=== PATIENT | female | born 1950 | race Caucasian/White ===

== ENCOUNTER 2019-12-23 11:42 | Inpatient (IN) ==
[2019-12-23 12:53] LABS: Basophils # (auto) 0.03 K/uL (0-0.2); Basophils % (auto) 0.2 %; Eosinophils # (auto) 0.03 K/uL (0-0.5); Eosinophils % (auto) 0.2 %; Hematocrit (blood only) 33.3 % (37-47); Hemoglobin 11.5 g/dL (12.0-16.0); Immature Granulocytes # (auto) 0.05 K/uL (0.00-0.02); Immature Granulocytes % (auto) 0.4 %; Lymphocytes # (auto) 1.25 K/uL (1.2-3.4); Lymphocytes % (auto) 8.8 %; Mean Corpuscular Hemoglobin 30.8 pg (25-34); Mean Corpuscular Hgb Conc 34.5 g/dL (32-36); Mean Corpuscular Volume 89.3 fL (80-100); Mean Platelet Volume 8.1 fL (7.4-10.4); Monocytes # (auto) 1.31 K/uL (0.11-0.59); Monocytes % (auto) 9.2 %; Neutrophils # (auto) 11.57 K/uL (1.4-6.5); Neutrophils % (auto) 81.2 %; Platelet Count 756 K/uL (130-400); RDW Coefficient of Variation 12.8 % (11.5-14.5); RDW Standard Deviation 41.5 fL (36.4-46.3); Red Blood Count 3.73 M/uL (4.2-5.4); White Blood Count 14.24 K/uL (4.8-10.8)
[2019-12-23 13:12] LABS: Albumin Level 2.3 gm/dl (3.4-5.0); BUN Creatinine Ratio 14.2 (10-20); Calcium 8.7 mg/dl (8.5-10.1); Creatinine Clr Calc Pharmacy 41.7 ml/min; Est GFR (African American) 87.8; Est GFR (Non-African American) 75.8; Potassium 3.2 mmol/L (3.5-5.1)
[2019-12-23 13:15] LABS: Albumin Globulin Ratio 0.5 (0.9-2); Bilirubin,Total 0.3 mg/dl (0.2-1); Globulin 4.3 gm/dl (2.5-4.0); Total Protein 6.6 gm/dl (6.4-8.2)
[2019-12-23] MEDS ORDERED: PROCHLORPERAZINE 1 ML IV ONE (13:19)
[2019-12-23] MEDS ORDERED: ACETAMINOPHEN 1,000 MG/100 ML VIAL IV STA (13:19)
[2019-12-23] MEDS ORDERED: FAMOTIDINE 20MG/5ML IV PUSH IV STA (13:19)
[2019-12-23] MEDS ORDERED: SODIUM CHLORIDE 0.9% 1000ML 1,000 ML IV ONE (13:20)
[2019-12-23] MEDS ORDERED: metroNIDAZOLE 500 MG/100 ML BAG IV STA (14:11)
[2019-12-23] MEDS ORDERED: SODIUM CHLORIDE 0.9% 500 ML IV SCH (14:15)
[2019-12-23 14:48] LABS: Magnesium 1.7 mg/dl (1.8-2.4)
--- NOTE | 2019-12-23 15:09 | History & Physical Report ---
Date of Service December 23, 2019 Assessment & Plan (1) Exacerbation of ulcerative colitis: Pt is 69 y/o F with PMH ulcerative colitis, hypertension, dyslipidemia, GERD scented to ER with complaint of rectal pain, mucus and blood-tinged BMs x 8 weeks. 8 pound weight loss in past 2 weeks. No improvement with outpatient trial of steroid enemas, mesalamine enemas or oral steroids. 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 In ER afebrile, vitals stable. WBC: 14, CRP: 17, ESR: 50 -Blood cultures pending -In ER given 1 mL NSS bolus, Tylenol 1 g IV, Pepcid 20 mg IV, Flagyl 500 mg IV, Solu-Medrol 20 mg IV -ER spoke to GI-Dr. Duarte who had recommended admission, C. difficile, Flagyl and steroids -Pending C. difficile, stool studies -IV fluids -Clear liquid diet as tolerated for now -Solu-Medrol 20 mg every 8 hours -Flagyl IV -Continue home mesalamine -GI consult -CBC, BMP in a.m. (2) Hypokalemia: K: 3.2 -NSS plus KCl -Monitor BMP (3) Hypomagnesemia: Magnesium: 1.7 -Replace and monitor (4) HTN (hypertension): -Continue amlodipine (5) Dyslipidemia: -Hold home medicines at this time with current abdominal upset (6) GERD (gastroesophageal reflux disease): -Continue PPI DVT Prophylaxis -SCDs Full Code as per discussion with pt Follows with Dr Serna for routine care Pt was seen and care coordinated with Dr Osorio. See addendum History of Present Illness Chief Complaint: Rectal pain Primary Care Provider: Martine Serna MD Pt is 69 y/o F with PMH ulcerative colitis, hypertension, dyslipidemia, GERD scented to ER with complaint of rectal pain, mucus and blood-tinged BMs x 8 weeks. Reports 8 pound weight loss in the past 2 weeks. Follows with GI-Dr. Duarte outpatient. Pt states 2 weeks ago had temp of 100-102F and had outpatient CT abd/pelvis to r/o abscess and did not have abscess. Has not had recurrent fevers. Has tried hydrocortisone enemas, mesalamine enemas without relief. Patient reports last use enemas approximately 12 days ago. She does note last time she tried to use an enema she had output through her vagina. Patient reports decreased oral intake. Reports rectal and vaginal pressure and pain. Denies urinary symptoms. Denies diffuse watery diarrhea. Last week patient has been having increased generalized weakness. Denies diaphoresis, N/V, THAPA, dizziness, syncope, vision changes, neck pain, CP, SOB, orthopnea, palpitations, cough, sore throat, choking, otalgia, rhinorrhea, paresthesias, extremity edema, rashes. 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 History colonoscopy 05/2019: Normal examined portion of ileum, normal colon, normal distal rectum and anal verge. Allergies Allergy/AdvReac Type Severity Reaction Status Date / Time niacin Allergy Unknown RASH AND Verified 12/23/19 13:27 ITCHY prednisone Allergy Unknown SUICIDAL Verified 12/23/19 13:27 THOUGHTS Sulfa (Sulfonamide Allergy Unknown "FEEL LIKE Verified 12/23/19 13:27 Antibiotics) I SWALLOWED PEPPER" & Rash lovastatin AdvReac Unknown MUSCLE Verified 12/23/19 13:27 SORENESS rosuvastatin AdvReac Unknown MUSCLE Verified 12/23/19 13:27 SORENESS simvastatin AdvReac Unknown MUSCLE Verified 12/23/19 13:27 SORENESS [id number] Reductase AdvReac Unknown MUSCLE Verified 12/23/19 13:27 Inhibitor SORENESS Home Medications Home Medications Medication Instructions Recorded Confirmed Type [place] 1 dose PO QAM 06/08/19 12/23/19 History amlodipine 5 mg PO QAM 06/08/19 12/23/19 History azelaic acid [Finacea] 1 applic TOPICAL UD PRN 06/08/19 12/23/19 History calcium lactate 600 mg PO QAM 06/08/19 12/23/19 History cholecalciferol (vitamin D3) 2,000 unit PO DAILY 06/08/19 12/23/19 History [Vitamin D3] diphenhydramine HCl [Benadryl] 25 mg PO HS 06/08/19 12/23/19 History folic acid 1 mg PO QAM 06/08/19 12/23/19 History mesalamine [Lialda] 3.6 g PO QAM 06/08/19 12/23/19 History omeprazole 20 mg PO QAM 06/08/19 12/23/19 History tramadol 50 mg PO Q8H PRN 06/08/19 12/23/19 History valacyclovir [Valtrex] 500 mg PO QAM 06/08/19 12/23/19 History acetaminophen [Tylenol Extra 1,000 mg PO Q6H PRN 12/23/19 12/23/19 History Strength] budesonide [Entocort EC] 3 mg PO DIRECTED 12/23/19 12/23/19 History ezetimibe [Zetia] 10 mg PO QAM 12/23/19 12/23/19 History Past Med/Surg History Medical History Dyslipidemia GERD (gastroesophageal reflux disease) History of basal cell carcinoma REMOVED History of kidney stones X1 EPISODE - MANY YRS AGO HTN (hypertension) Osteoarthritis Rosacea Shoulder problem R Ulcerative colitis Surgical History History of colonoscopy History of repair of right rotator cuff History of right knee surgery History of tubal ligation Family History Other COPD (chronic obstructive pulmonary disease) Hypertension Social History Smoking Status: Never smoker Second Hand Exposure: No; Do You Dip or Chew Tobacco: No; Tobacco Cessation Education Requested by Patient: No Hx Alcohol Use: No Hx Substance Use: No Preferred Language: Hungarian Communication Ability: Effective 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 Beliefs That Will Affect Care: None Current Living Situation: Spouse Other Information That Helps Us Care for You: No Feels Safe at Home: Yes Safety Concerns: Feels Safe At This Time Review of Systems Review of Systems: All systems reviewed & are unremarkable except as noted in HPI & below Physical Exam Physical Exam: General: no distress, thin female Head: normocephalic, atraumatic Eyes: conjunctiva non-injected, anicteric ENT: normal inspection external ears, nose, mucous membranes mildly dry Neck: supple, trachea midline Lungs: clear, no respiratory distress, no wheezing/rhonchi/rales CV: RRR, no murmur, no pretibial edema Abd: normal BS, soft, no significant tenderness to palpation Ext: no cyanosis, no calf tenderness Neuro: A&O x 3, no focal deficits noted, normal affect Skin: warm, dry Results & Data Results & Data ([facility]) Vital Signs (Past 12 Hours) Vital Signs Temp Pulse Resp BP Pulse Ox 12/23/19 14:10 80 13 12/23/19 14:00 84 16 12/23/19 13:50 84 19 12/23/19 13:40 86 18 12/23/19 13:39 86 22 12/23/19 13:33 151/87 H 12/23/19 13:30 86 18 12/23/19 13:20 92 H 21 12/23/19 13:10 92 H 21 12/23/19 13:00 96 H 21 12/23/19 12:50 90 19 12/23/19 12:40 89 17 12/23/19 12:30 95 H 19 12/23/19 12:29 95 H 20 12/23/19 11:45 36.6 C 99 H 20 153/93 H 99 Laboratory Results Short CBC 12/23/19 Range/Units 12:31 WBC 14.24 H (4.8-10.8) K/uL Hgb 11.5 L (12.0-16.0) g/dL Hct 33.3 L (37-47) % Plt Count 756 H (130-400) K/uL BMP 12/23/19 12:31 Sodium 136 Potassium 3.2 L Chloride 103 Carbon Dioxide 23 BUN 11 Creatinine 0.80 Glucose 165 H Calcium 8.7 Liver Function 12/23/19 Range/Units 12:31 Total Bilirubin 0.3 (0.2-1) mg/dl AST 8 L (15-37) U/L ALT 16 (12-78) U/L Alkaline Phosphatase 107 (45-117) U/L Albumin 2.3 L (3.4-5.0) gm/dl Code Status & VTE Plan VTE Prophylaxis Plan VTE Prophylaxis will be ordered: Yes Supervising Physician Co-Signing Physician Notes Patient was seen and examined by me, care coordinated with Mónica Cagle PA-C. Please see her note above for further details. Mrs. De La Vega is a 69-year-old female, with history of ulcerative colitis, dyslipidemia, who presents to the hospital with UC flare. Patient follows with Dr. Duarte, from [facility], lately she has been having more loose stools, and bloody mucus stools. She also lost weight, she believes about 8 pounds in last 2 weeks. Unfortunately she also noticed that when she does her enemas, they seem to be coming out of her vagina, and therefore she contacted her deputy felony clerk. MRI was ordered and patient underwent MRI yesterday. It showed severe UC involving descending colon, sigmoid and rectum. Suspected perianal fistula at 12 oclock extending to perineum/vaginal introitus originating at the anorectal junction. No abscess. Patient has been on budesonide from December 11, however she feels it makes no difference for her. Currently in ED, her WBC is 14,000, hemoglobin 11.5, platelets 756. CRP is 17, ESR 50. She is hypokalemic with potassium of 3.2. She is currently lying in bed, in no acute distress. Her is at the bedside. She is alert and oriented x3, answering questions appropriately. Lungs are clear on auscultation bilaterally, without any wheezing rhonchi or crackles. Heart sounds are regular. Abdomen is soft, overall nontender to palpation, nondistended. However patient does complain of constant pressure in her groin/vaginal area. She moves all 4 extremities spontaneously without difficulty. There is no lower extremity edema. Skin is warm, dry, well perfused without any rashes or lesions. Will check mag and phosphorus level, and replace electrolytes as needed. We will continue IV hydration. Will start IV Solu-Medrol 20 every 8 hours. Will test for C. difficile and stool culture. Will start Flagyl as discussed with GI. GI will follow. Given her weight loss, and low BMI of 17, will need to discuss further her nutritional status. Given her fistula patient may need possibly TPN, will discuss further with GI. Charlene Osorio MD
[2019-12-23 15:19] LABS: Phosphorus 3.1 mg/dl (2.5-4.9)
[2019-12-23] MEDS ORDERED: TRAMADOL HCL 50 MG TABLET PO PRN (16:00)
[2019-12-23] MEDS ORDERED: MAGNESIUM SULFATE / D5W 1 GM/100 ML BAG IV ONE (16:00)
[2019-12-23] MEDS: NSS + 20MEQ KCL 20 MEQ/1,000 ML BAG IV SCH (16:39)
[2019-12-23] MEDS ORDERED: POTASSIUM CHLORIDE 20 MEQ TABCR PO ONE (17:00)
--- NOTE | 2019-12-23 17:50 | Emergency Department Note ---
Impression & Plan Exacerbation of ulcerative colitis, Dehydration, Hypokalemia, Hypomagnesemia ED Provider Note NAME: ANNABELLE LUNA AGE: 69 SEX: F ARRIVES VIA: Walk-In INFORMANT: Patient, ED PROVIDER(S): Db Lucio MD CHIEF COMPLAINT: Ulcerative colitis flare, dehydration. PLAN: Disposition: Admit MEDICAL DECISION MAKING: The patient is a pleasant 69 y/o woman with a pmhx of ulcerative colitis who presents to the emergency department with generalized weakness, dizziness., and dehydration in the setting of ongoing UC flare over the past month with de velopment of frequent vaginal discharge over the past week. Patient reports having MRI of her abdomen this past week, demonstrated evidence of askn-pupt-zrcxcwn fistula. No evidence of abscess. She reports intermittent nausea without vomiting. Reports intermittent lower abdominal pain/spasm and rectal pain with bowel movements, which she reports have been bloody. Denies CP, SOB, cough, congestion, fevers. On arrival the patient is fatigued appearing but in NAD, AFVSS. She appears clinically dry. Abdomen is nontender. WBC 14.2, nonspecific. H/H 11.5/33 without prior for comparison. Platelets 756, on specific. ESR 50, CRP 17. Chemistry without acidosis. Potassium 3.2, Mag 1.7. LFTs unremarkable. Lipase is not elevated. Case was discussed with patient's java developer consultant, Dr. Duarte, who was also [facility] GI on-call. Agrees with admission given patient's prolonged and worsening symptoms. Will likely require colorectal surgery referral at some point. Recommends Cdiff testing, IV steroid s, IV flagyl. Given patient recently had MRI we agree CT is unlikely to add at this time and so was deferred. Plan for admission reviewed with the patient and her and they were agreeable. Patient reports history of feeling depression and SI when on prednisone in past but is agreeable to proceed with IV steroids per GI recommendation. Case was discussed with Luisa Cagle, [facility] PAC, with Dr. Briscoe, who will evaluate the patient for admission. Triage Nursing notes reviewed and agree them. Additional history obtained from [facility] record. Prior medical records reviewed Vital Signs: reviewed and remarkable for no significant abnormalities Differential diagnosis: Appendicitis, ovarian cyst, ovarian torsion, ectopic , TOA, PID, infections, diverticulitis, UTI, obstruction, mesenteric ischemia, aortic pathology, inflammatory bowel disease, renal colic, PUD, pancreatitis, biliary pathology, hernia, volvulus, constipation, as well as other pathologies. ER treatment provided: See below. Diagnostics interpreted by me: ECG: NSR, 89 bpm, no ectopy, no overt ST elevation or depression, QTC 440, QRS 82 Cardiac Monitoring: An order for continuous cardiac monitoring was placed and demonstrated NSR, 89 bpm, no ectopy. Laboratory studies: See below Consultation(s): Dr. Duarte, [facility] GI on-call. Luisa Cagle, [facility] PAC, with Dr. Briscoe, [facility] hospitalist, who will evaluate the patient for admission. HPI: The patient is a pleasant 69 y/o woman with a pmhx of ulcerative colitis who presents to the emergency department with generalized weakness, dizziness., and dehydration in the setting of ongoing UC flare over the past month with development of frequent vaginal discharge over the past week. Patient reports having MRI of her abdomen this past week, demonstrated evidence of odlo-mdie-dx ginal fistula. No evidence of abscess. She reports intermittent nausea without vomiting. Reports intermittent lower abdominal pain/spasm and rectal pain with bowel movements, which she reports have been bloody. Denies CP, SOB, cough, congestion, fevers. ROS: See above HPI for pertinent positives & negatives. A total of 10 systems reviewed and were otherwise negative. PAST MEDICAL HISTORY:See Below PAST SURGICAL HISTORY:See Below FAMILY HISTORY:See Below SOCIAL HISTORY:See Below HOME MEDICATIONS:See Below ALLERGIES:See Below VITALS:See Below PHYSICAL EXAMINATION: GENERAL: Awake, alert, fatigued/cachectic-appearing, in no distress HENT: Normocephalic, atraumatic. Oropharynx with dry mucous membranes and otherwise unremarkable. EYES: Normal conjunctiva. Sclera non-icteric. NECK: Supple. No nuchal rigidity. FROM. No JVD. RESPIRATORY: Clear to auscultation. CARDIAC: Regular rate, normal rhythm. Extremities warm and well perfused. Pulses equal. ABDOMEN: Soft, non-distended. No tenderness to palpation. No rebound or guarding. No masses. RECTAL: Deferred. MUSCULOSKELETAL: Chest examination reveals no tenderness. The back is symmetrical on inspection without obvious abnormality. There is no CVA tenderness to palpation. No joint edema. LOWER EXTREMITIES: Calves are equal size bilaterally and non-tender. No edema. No discoloration. NEURO: Normal sensorium. No sensory or motor deficits noted. SKIN: No rash or jaundice noted. Db Lucio MD Past Med/Surg History Medical History Dyslipidemia GERD (gastroesophageal reflux disease) History of basal cell carcinoma REMOVED History of kidney stones X1 EPISODE - MANY YRS AGO HTN (hypertension) Osteoarthritis Rosacea Shoulder problem R Ulcerative colitis Surgical History History of colonoscopy History of repair of right rotator cuff History of right knee surgery History of tubal ligation Family History Other COPD (chronic obstructive pulmonary disease) Hypertension Social History Smoking Status: Never smoker Second Hand Exposure: No; Do You Dip or Chew Tobacco: No; Tobacco Cessation Education Requested by Patient: No Hx Alcohol Use: No Hx Substance Use: No Preferred Language: Welsh Communication Ability: Effective Steel Tester Required: No Beliefs That Will Affect Care: None Current Living Situation: Spouse Other Information That Helps Us Care for You: No Feels Safe at Home: Yes Safety Concerns: Feels Safe At This Time Allergies Allergies Allergy/AdvReac Type Severity Reaction Status Date / Time niacin Allergy Unknown RASH AND Verified 12/23/19 13:27 ITCHY prednisone Allergy Unknown SUICIDAL Verified 12/23/19 13:27 THOUGHTS Sulfa (Sulfonamide Allergy Unknown "FEEL LIKE Verified 12/23/19 13:27 Antibiotics) I SWALLOWED PEPPER" & Rash lovastatin AdvReac Unknown MUSCLE Verified 12/23/19 13:27 SORENESS rosuvastatin AdvReac Unknown MUSCLE Verified 12/23/19 13:27 SORENESS simvastatin AdvReac Unknown MUSCLE Verified 12/23/19 13:27 SORENESS Aocqisd-Qlw-Cgb Reductase AdvReac Unknown MUSCLE Verified 12/23/19 13:27 Inhibitor SORENESS Home Meds Home Medications Medication Instructions Recorded Confirmed Chaste Tree 1 dose PO QAM 06/08/19 12/23/19 amlodipine 5 mg PO QAM 06/08/19 12/23/19 azelaic acid [Finacea] 1 applic TOPICAL UD PRN 06/08/19 12/23/19 calcium lactate 600 mg PO QAM 06/08/19 12/23/19 cholecalciferol (vitamin D3) 2,000 unit PO DAILY 06/08/19 12/23/19 [Vitamin D3] diphenhydramine HCl [Benadryl] 25 mg PO HS 06/08/19 12/23/19 folic acid 1 mg PO QAM 06/08/19 12/23/19 mesalamine [Lialda] 3.6 g PO QAM 06/08/19 12/23/19 omeprazole 20 mg PO QAM 06/08/19 12/23/19 tramadol 50 mg PO Q8H PRN 06/08/19 12/23/19 valacyclovir [Valtrex] 500 mg PO QAM 06/08/19 12/23/19 acetaminophen [Tylenol Extra 1,000 mg PO Q6H PRN 12/23/19 12/23/19 Strength] budesonide [Entocort EC] 3 mg PO DIRECTED 12/23/19 12/23/19 ezetimibe [Zetia] 10 mg PO QAM 12/23/19 12/23/19 Results & Data (ED) Vital Signs Vital Signs - 24 hr 12/23/19 11:45 12/23/19 12:29 12/23/19 12:30 Temperature 36.6 C Temperature Source Oral Pulse Rate 99 H 95 H 95 H Respiratory Rate 20 20 19 Respiratory Effort / Characteristics Non-Labored Respiratory Depth Normal Blood Pressure 153/93 H Blood Pressure Mean 113 Pulse Oximetry 99 Oxygen Delivery Method Room Air Sepsis Recent Fever Within 48 Hours No Sepsis New/Unexplained Change in Mental Status N/A Sepsis Action Taken by Nursing No Action Required 12/23/19 12:40 12/23/19 12:50 12/23/19 13:00 Temperature Temperature Source Pulse Rate 89 90 96 H Respiratory Rate 17 19 21 Respiratory Effort / Characteristics Respiratory Depth Blood Pressure Blood Pressure Mean Pulse Oximetry Oxygen Delivery Method Sepsis Recent Fever Within 48 Hours Sepsis New/Unexplained Change in Mental Status Sepsis Action Taken by Nursing 12/23/19 13:10 12/23/19 13:20 12/23/19 13:30 Temperature Temperature Source Pulse Rate 92 H 92 H 86 Respiratory Rate 21 21 18 Respiratory Effort / Characteristics Respiratory Depth Blood Pressure Blood Pressure Mean Pulse Oximetry Oxygen Delivery Method Sepsis Recent Fever Within 48 Hours Sepsis New/Unexplained Change in Mental Status Sepsis Action Taken by Nursing 12/23/19 13:33 12/23/19 13:39 12/23/19 13:40 Temperature Temperature Source Pulse Rate 86 86 Respiratory Rate 22 18 Respiratory Effort / Characteristics Respiratory Depth Blood Pressure 151/87 H Blood Pressure Mean 92 Pulse Oximetry Oxygen Delivery Method Sepsis Recent Fever Within 48 Hours Sepsis New/Unexplained Change in Mental Status Sepsis Action Taken by Nursing 12/23/19 13:50 12/23/19 14:00 12/23/19 14:10 Temperature Temperature Source Pulse Rate 84 84 80 Respiratory Rate 19 16 13 Respiratory Effort / Characteristics Respiratory Depth Blood Pressure Blood Pressure Mean Pulse Oximetry Oxygen Delivery Method Sepsis Recent Fever Within 48 Hours Sepsis New/Unexplained Change in Mental Status Sepsis Action Taken by Nursing Laboratory Data Attestation: I reviewed the patient's lab results. Result diagrams: 12/23/19 12:31 12/23/19 12:31 Lab Results 12/23/19 12/23/19 12/23/19 Range/Units 12:31 12:31 12:31 WBC 14.24 H (4.8-10.8) K/uL RBC 3.73 L (4.2-5.4) M/uL Hgb 11.5 L (12.0-16.0) g/dL Hct 33.3 L (37-47) % MCV 89.3 (80-100) fL MCH 30.8 (25-34) pg MCHC 34.5 (32-36) g/dL RDW Std Deviation 41.5 (36.4-46.3) fL RDW Coeff of Gadiel 12.8 (11.5-14.5) % Plt Count 756 H (130-400) K/uL MPV 8.1 (7.4-10.4) fL Immature Gran % (Auto) 0.4 % Neut % (Auto) 81.2 % Lymph % (Auto) 8.8 % [place] % (Auto) 9.2 % Eos % (Auto) 0.2 % Baso % (Auto) 0.2 % Neut # (Auto) 11.57 H (1.4-6.5) K/uL Lymph # (Auto) 1.25 (1.2-3.4) K/uL [place] # (Auto) 1.31 H (0.11-0.59) K/uL Eos # (Auto) 0.03 (0-0.5) K/uL Baso # (Auto) 0.03 (0-0.2) K/uL Immature Gran # (Auto) 0.05 H (0.00-0.02) K/uL ESR 50 H (0-21) mm/hr Sodium 136 (136-145) mmol/L Potassium 3.2 L (3.5-5.1) mmol/L Chloride 103 (98-107) mmol/L Carbon Dioxide 23 (21-32) mmol/L Anion Gap 10.0 (3-11) BUN 11 (7-18) mg/dl Creatinine 0.80 (0.6-1.2) mg/dl Est Cr Clr Drug Dosing 41.7 ml/min Est GFR ( Amer) 87.8 Est GFR (Non-Af Amer) 75.8 BUN/Creatinine Ratio 14.2 (10-20) Glucose 165 H (70-99) mg/dl Calcium 8.7 (8.5-10.1) mg/dl Phosphorus (2.5-4.9) mg/dl Magnesium (1.8-2.4) mg/dl Total Bilirubin 0.3 (0.2-1) mg/dl AST 8 L (15-37) U/L ALT 16 (12-78) U/L Alkaline Phosphatase 107 (45-117) U/L C-Reactive Protein (0-0.29) mg/dl Total Protein 6.6 (6.4-8.2) gm/dl Albumin 2.3 L (3.4-5.0) gm/dl Globulin 4.3 H (2.5-4.0) gm/dl Albumin/Globulin Ratio 0.5 L (0.9-2) Lipase 64 L (73-393) U/L 12/23/19 12/23/19 Range/Units 12:31 12:31 WBC (4.8-10.8) K/uL RBC (4.2-5.4) M/uL Hgb (12.0-16.0) g/dL Hct (37-47) % MCV (80-100) fL MCH (25-34) pg MCHC (32-36) g/dL RDW Std Deviation (36.4-46.3) fL RDW Coeff of Gadiel (11.5-14.5) % Plt Count (130-400) K/uL MPV (7.4-10.4) fL Immature Gran % (Auto) % Neut % (Auto) % Lymph % (Auto) % [place] % (Auto) % Eos % (Auto) % Baso % (Auto) % Neut # (Auto) (1.4-6.5) K/uL Lymph # (Auto) (1.2-3.4) K/uL [place] # (Auto) (0.11-0.59) K/uL Eos # (Auto) (0-0.5) K/uL Baso # (Auto) (0-0.2) K/uL Immature Gran # (Auto) (0.00-0.02) K/uL ESR (0-21) mm/hr Sodium (136-145) mmol/L Potassium (3.5-5.1) mmol/L Chloride (98-107) mmol/L Carbon Dioxide (21-32) mmol/L Anion Gap (3-11) BUN (7-18) mg/dl Creatinine (0.6-1.2) mg/dl Est Cr Clr Drug Dosing ml/min Est GFR ( Amer) Est GFR (Non-Af Amer) BUN/Creatinine Ratio (10-20) Glucose (70-99) mg/dl Calcium (8.5-10.1) mg/dl Phosphorus 3.1 (2.5-4.9) mg/dl Magnesium 1.7 L (1.8-2.4) mg/dl Total Bilirubin (0.2-1) mg/dl AST (15-37) U/L ALT (12-78) U/L Alkaline Phosphatase (45-117) U/L C-Reactive Protein 17.20 H (0-0.29) mg/dl Total Protein (6.4-8.2) gm/dl Albumin (3.4-5.0) gm/dl Globulin (2.5-4.0) gm/dl Albumin/Globulin Ratio (0.9-2) Lipase (73-393) U/L Administered Medications Metronidazole (Flagyl) 500 mg in 100 mls @ 100 mls/hr IV Q8H EMY Stop: 01/02/20 13:59 Last Infusion: 12/23/19 22:32 Dose: 0 mls/hr Documented by: [id number] Admin: 12/23/19 21:29 Dose: 100 mls/hr Documented by: [id number] Potassium Chloride/Sodium Chloride (Normal Saline W/20 Meq Kcl) 20 meq in 1,000 mls @ 100 mls/hr IV .Q10H EMY Stop: 12/24/19 21:59 Last Admin: 12/23/19 16:39 Dose: 100 mls/hr Documented by: [id number] Methylprednisolone 20 mg/ (Syringe) 0.32 mls @ 1.5 mls/min IV Q8 EMY Stop: 01/22/20 21:59 Last Admin: 12/23/19 21:27 Dose: 1.5 mls/min Documented by: [id number] Discontinued Medications Famotidine (Pepcid 20mg Iv Push) 20 mg IV ONE STA Stop: 12/23/19 13:20 Last Admin: 12/23/19 13:30 Dose: 20 mg Documented by: [id number] Acetaminophen (Ofirmev) 1,000 mg in 100 mls @ 400 mls/hr IV NOW STA Stop: 12/23/19 13:33 Last Infusion: 12/23/19 14:14 Dose: 0 mls/hr Documented by: [id number] Admin: 12/23/19 13:30 Dose: 400 mls/hr Documented by: [id number] Prochlorperazine (Compazine) 1 mls @ 1 mls/min IV ONE ONE Stop: 12/23/19 13:20 Last Admin: 12/23/19 13:30 Dose: 1 mls/min Documented by: [id number] Sodium Chloride (Nss 1000ml) 1,000 mls @ 999 mls/hr IV .Q1H1M ONE Stop: 12/23/19 14:20 Last Infusion: 12/23/19 14:57 Dose: 0 mls/hr Documented by: [id number] Admin: 12/23/19 13:30 Dose: 999 mls/hr Documented by: [id number] Metronidazole (Flagyl) 500 mg in 100 mls @ 100 mls/hr IV NOW STA Stop: 12/23/19 15:10 Last Infusion: 12/23/19 16:32 Dose: 0 mls/hr Documented by: [id number] Admin: 12/23/19 14:57 Dose: 100 mls/hr Documented by: [id number] Sodium Chloride (Nss) 500 mls @ 125 mls/hr IV .Q4H EMY Stop: 01/22/20 14:14 Last Infusion: 12/23/19 16:33 Dose: 0 mls/hr Documented by: [id number] Infusion: 12/23/19 16:33 Dose: 0 mls/hr Documented by: [id number] Admin: 12/23/19 15:00 Dose: 125 mls/hr Documented by: [id number] Magnesium Sulfate/Dextrose (Magnesium Sulfate / D5w) 1 gm in 100 mls @ 50 mls/hr IV ONE ONE Stop: 12/23/19 17:59 Last Infusion: 12/23/19 18:52 Dose: 0 mls/hr Documented by: [id number] Admin: 12/23/19 16:42 Dose: 50 mls/hr Documented by: [id number] Methylprednisolone (Solumedrol) 20 mg IV NOW STA Stop: 12/23/19 14:12 Last Admin: 12/23/19 14:25 Dose: 20 mg Documented by: [id number] Potassium Chloride (Klor-Con M20) 40 meq PO 1700 ONE Stop: 12/23/19 17:01 Last Admin: 12/23/19 17:03 Dose: 40 meq Documented by: [id number] Blood Pressure Blood Pressure Findings: Normal blood pressure Blood Pressure Disposition: did not require urgent referral Discharge Plan Visit Data *Final* Discharge Date/Time: 12/23/19 15:41 Chief Complaint: GI Assessment Stated Complaint: DEHYDRATED - REF BY NURSE ED Provider: Db Lucio Discharge Problem: Exacerbation of ulcerative colitis, Dehydration, Hypokalemia, Hypomagnesemia Patient Disposition: Admitted As Inpatient Discharge Instructions Interventions: ED Discharge Assessment Last Done: 12/23/19 15:41
[2019-12-23] MEDS: methylPREDNISolone 20 MG in SYRINGE 0 ML IV SCH (21:27)
[2019-12-23] MEDS: metroNIDAZOLE 500 MG/100 ML BAG IV SCH (21:29)
[2019-12-24] MEDS: NSS + 20MEQ KCL 20 MEQ/1,000 ML BAG IV SCH ×2 (05:35→16:39)
[2019-12-24] MEDS: metroNIDAZOLE 500 MG/100 ML BAG IV SCH ×3 (05:35→21:23)
[2019-12-24] MEDS: methylPREDNISolone 20 MG in SYRINGE 0 ML IV SCH ×2 (05:36→14:08)
[2019-12-24 06:08] LABS: Basophils # (auto) 0.01 K/uL (0-0.2); Basophils % (auto) 0.1 %; Hematocrit (blood only) 30.9 % (37-47); Hemoglobin 10.5 g/dL (12.0-16.0); Immature Granulocytes # (auto) 0.04 K/uL (0.00-0.02); Immature Granulocytes % (auto) 0.3 %; Lymphocytes # (auto) 0.66 K/uL (1.2-3.4); Lymphocytes % (auto) 5.3 %; Mean Corpuscular Hemoglobin 30.2 pg (25-34); Mean Corpuscular Volume 88.8 fL (80-100); Monocytes % (auto) 5.6 %; Neutrophils # (auto) 11.01 K/uL (1.4-6.5); Neutrophils % (auto) 88.7 %; Platelet Count 693 K/uL (130-400); RDW Standard Deviation 42.3 fL (36.4-46.3); Red Blood Count 3.48 M/uL (4.2-5.4); White Blood Count 12.42 K/uL (4.8-10.8)
[2019-12-24 06:44] LABS: BUN Creatinine Ratio 13.6 (10-20); Calcium 8.1 mg/dl (8.5-10.1); Creatinine Clr Calc Pharmacy 69.8 ml/min; Est GFR (African American) 116.8; Est GFR (Non-African American) 100.8; Magnesium 1.9 mg/dl (1.8-2.4)
[2019-12-24] MEDS: VALACYCLOVIR HCL 500 MG TABLET PO SCH (07:36)
[2019-12-24] MEDS: AMLODIPINE BESYLATE 5 MG TAB PO SCH (07:36)
[2019-12-24] MEDS: FOLIC ACID 1 MG TAB PO SCH (07:36)
[2019-12-24] MEDS: PANTOprazole 40 MG TAB PO SCH (07:36)
[2019-12-24] MEDS: ACETAMINOPHEN 325 MG TAB PO PRN ×2 (07:36→21:27)
--- NOTE | 2019-12-24 08:43 | Gastrointestinal Consultation ---
Date of Consultation December 24, 2019 Assessment & Plan (1) Dehydration: (2) Hypomagnesemia: (3) Hypokalemia: (4) Exacerbation of ulcerative colitis: 69 yo female with a long standing history of left sided ulcerative colitis admitted with over a month of worsening diarrhea and perirectal pain and failure to respond to outpatient management. Recent MR with evidence of perianal fistula and significant left sided colonic inflammation. C diff here is negative. - Bowel rest - IVF hydration - Correction of electrolyte abnormalities. - Remainder of stool studies pending. - IV steroids. - IV Cipro and Flagyl (5) Perianal fistula: History of Present Illness Attending Physician: Buzz Osorio MD History of Present Illness 69 yo female with a long standing history of left sided ulcerative colitis which has been managed with mesalamine, mainly topical treatment, over the last several years. She had a colonoscopy within the last year which showed quiescent disease. She was seen in the office a few weeks ago wtih complaints of rectal and lower abd pain as well as diarrhea and symptoms concerning for a flare. She does not do well with prednisone and prefers to avoid it and was instead started on budesonide 9mg. She has not really seen any improvement. She has also been using mesalamine enemas and noted possible communication between the rectum and vagina. MR enterography was done 12/21 and has been reviewed. Shows significant left colon inflammation as well as pericanal fistula. She presented to the ER last evening with overall fatigue, weight loss, and failure to improve with outpatient management. Allergies Allergy/AdvReac Type Severity Reaction Status Date / Time niacin Allergy Unknown RASH AND Verified 12/23/19 13:27 ITCHY prednisone Allergy Unknown SUICIDAL Verified 12/23/19 13:27 THOUGHTS Sulfa (Sulfonamide Allergy Unknown "FEEL LIKE Verified 12/23/19 13:27 Antibiotics) I SWALLOWED PEPPER" & Rash lovastatin AdvReac Unknown MUSCLE Verified 12/23/19 13:27 SORENESS rosuvastatin AdvReac Unknown MUSCLE Verified 12/23/19 13:27 SORENESS simvastatin AdvReac Unknown MUSCLE Verified 12/23/19 13:27 SORENESS Rqtwgpj-Trp-Anh Reductase AdvReac Unknown MUSCLE Verified 12/23/19 13:27 Inhibitor SORENESS Home Medications Home Medications Medication Instructions Recorded Confirmed Type Cathyste Tree 1 dose PO QAM 06/08/19 12/23/19 History amlodipine 5 mg PO QAM 06/08/19 12/23/19 History azelaic acid [Finacea] 1 applic TOPICAL UD PRN 06/08/19 12/23/19 History calcium lactate 600 mg PO QAM 06/08/19 12/23/19 History cholecalciferol (vitamin D3) 2,000 unit PO DAILY 06/08/19 12/23/19 History [Vitamin D3] diphenhydramine HCl [Benadryl] 25 mg PO HS 06/08/19 12/23/19 History folic acid 1 mg PO QAM 06/08/19 12/23/19 History mesalamine [Lialda] 3.6 g PO QAM 06/08/19 12/23/19 History omeprazole 20 mg PO QAM 06/08/19 12/23/19 History tramadol 50 mg PO Q8H PRN 06/08/19 12/23/19 History valacyclovir [Valtrex] 500 mg PO QAM 06/08/19 12/23/19 History acetaminophen [Tylenol Extra 1,000 mg PO Q6H PRN 12/23/19 12/23/19 History Strength] budesonide [Entocort EC] 3 mg PO DIRECTED 12/23/19 12/23/19 History ezetimibe [Zetia] 10 mg PO QAM 12/23/19 12/23/19 History Patient History Medical History Dyslipidemia GERD (gastroesophageal reflux disease) History of basal cell carcinoma REMOVED History of kidney stones X1 EPISODE - MANY YRS AGO HTN (hypertension) Osteoarthritis Rosacea Shoulder problem R Ulcerative colitis Surgical History History of colonoscopy History of repair of right rotator cuff History of right knee surgery History of tubal ligation Family History Other COPD (chronic obstructive pulmonary disease) Hypertension Social History Smoking Status: Never smoker Second Hand Exposure: No; Do You Dip or Chew Tobacco: No; Tobacco Cessation Education Requested by Patient: No Hx Alcohol Use: No Hx Substance Use: No Preferred Language: Kinyarwanda Communication Ability: Effective Sedimentationist Required: No Beliefs That Will Affect Care: None Current Living Situation: Spouse Other Information That Helps Us Care for You: No Feels Safe at Home: Yes Safety Concerns: Feels Safe At This Time Review of Systems Review of Systems: All systems reviewed & are unremarkable except as noted in HPI & below Physical Exam Constitutional: WD/WN, vitals as above Respiratory: normal respiratory effort, lungs clear to auscultation Cardiovascular: RRR, no murmur, no edema Gastrointestinal (Abdomen): normal bowel sounds, soft, nontender, no hepatosplenomegaly Results & Data ([facility]) Vital Signs (Past 12 Hours) Vital Signs Temp Pulse Resp BP Pulse Ox 12/24/19 07:15 36.8 C 94 H 16 135/79 96 12/23/19 22:50 36.8 C 16 114/70 94
[2019-12-24] MEDS ORDERED: MESALAMINE 3.6 GM PO SCH (09:00)
[2019-12-24] MEDS: CIPROFLOXACIN / D5W 400 MG/200 ML BAG IV SCH ×2 (12:26→23:49)
--- NOTE | 2019-12-24 13:08 | Electrocardiogram Report ---
Test Reason : Blood Pressure : / mmHG Vent. Rate : 089 BPM Atrial Rate : 089 BPM P-R Int : 142 ms QRS Dur : 082 ms QT Int : 362 ms P-R-T Axes : 049 019 048 degrees QTc Int : 440 ms Poor data quality, interpretation may be adversely affected Normal sinus rhythm Normal ECG When compared with ECG of 20-NOV-2013 12:42, No significant change was found Confirmed by Aj Champagne ([id number]) on 12/24/2019 1:07:35 PM Referred By: REFERRED SELF Confirmed By:Aj Champagne
[2019-12-24 14:58] VITALS: O2SAT 97
--- NOTE | 2019-12-24 15:45 | Hospitalist Progress Note ---
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 WBC: 14, CRP: 17, ESR: 50 On IV solumedrol q8h, but pt said that she cannot tolerate the IV steroid, will transition to PO Continue IV flagyl and Cipro Stools for C-diff negative and stool cx no growth Blood cx negative Continue IVF gastro on board Case discussed with Dr. Duarte that recommended to keep the patient tonight and continue Flagyl and Cipro Diet advanced as tolerated (2) Hypokalemia: K: 3.2 on admission K stable 4 today NSS plus KCl Monitor BMP (3) Hypomagnesemia: Magnesium: 1.7 on admission Mg 1.9 today Continue monitor electrolytes (4) HTN (hypertension): Continue amlodipine (5) Dyslipidemia: Will resume statin on discharge (6) GERD (gastroesophageal reflux disease): Continue PPI DVT Prophylaxis on SCDs Full Code Admission and Anticipated Discharge Date Admission Date: December 23, 2019 Subjective Pt was seen and examined. Lying in bed with no distress with at bedside Pt said that she feels much better. She is very anxious to go home I called dr. Duarte for her that recommended to stay for the night, then she agreed to stay. She said that she cannot take the IV steroid if staying in the hospital because she cannot tolerate it She would like her diet to advance to soft rather than full liquid She said that they woke her up too many times last night Denies any chest pain, palpitation, dizziness and SOB Physical Exam Physical Exam: General- No acute distress Head- atraumatic Eyes- PERRL, EOMI, ENT- oropharynx clear Neck- supple, no JVD Lungs- clear to auscultation Heart- regular rhythm; no murmur Abdomen- normal bowel sounds, soft, +mild tender with deep palpation Extremities- no calf tenderness Neuro- alert, oriented x 3; PERRL, EOMI; no facial palsy; no dysarthria Skin- warm & dry Results & Data Results & Data ([facility]) Vital Signs (Past 12 Hours) Vital Signs Temp Pulse Resp BP Pulse Ox 12/24/19 14:57 36.5 C 83 16 124/74 97 12/24/19 07:15 36.8 C 94 H 16 135/79 96
[2019-12-24] MEDS: predniSONE 20 MG TAB PO SCH (19:41)
[2019-12-25] MEDS: metroNIDAZOLE 500 MG/100 ML BAG IV SCH (06:05)
[2019-12-25 06:50] VITALS: BP 146/86; PULSE 85; TEMP 98.1
[2019-12-25 07:07] LABS: Hematocrit (blood only) 32.3 % (37-47); Hemoglobin 10.7 g/dL (12.0-16.0); Mean Corpuscular Hemoglobin 30.1 pg (25-34); Mean Corpuscular Hgb Conc 33.1 g/dL (32-36); Mean Platelet Volume 7.9 fL (7.4-10.4); Platelet Count 792 K/uL (130-400); RDW Coefficient of Variation 13.2 % (11.5-14.5); RDW Standard Deviation 44.3 fL (36.4-46.3); Red Blood Count 3.55 M/uL (4.2-5.4); White Blood Count 8.63 K/uL (4.8-10.8)
[2019-12-25 07:41] LABS: BUN Creatinine Ratio 12.6 (10-20); Calcium 8.1 mg/dl (8.5-10.1); Est GFR (African American) 115.3; Est GFR (Non-African American) 99.4; Potassium 4.2 mmol/L (3.5-5.1)
[2019-12-25] MEDS: FOLIC ACID 1 MG TAB PO SCH (08:26)
[2019-12-25] MEDS: AMLODIPINE BESYLATE 5 MG TAB PO SCH (08:26)
[2019-12-25] MEDS: PANTOprazole 40 MG TAB PO SCH (08:26)
[2019-12-25] MEDS: predniSONE 20 MG TAB PO SCH (08:26)
[2019-12-25] MEDS: VALACYCLOVIR HCL 500 MG TABLET PO SCH (08:26)
[2019-12-25] MEDS: CIPROFLOXACIN / D5W 400 MG/200 ML BAG IV SCH (11:55)
--- NOTE | 2019-12-25 13:18 | Hospitalist Progress Note ---
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 WBC: 14, CRP: 17, ESR: 50 On IV solumedrol q8h, but pt said that she cannot tolerate the IV steroid, will transition to PO On IV flagyl and Cipro Stools for C-diff negative and stool cx no growth Blood cx no growth Tolerated diet gastro on board Case discussed with Dr. Duarte that recommended continue Flagyl and Cipro GI recommended a taper dose prednisone 40mg tthen decrease by 5mg each weak on discharge Clinically improves significantly Follow up with GI oupatient Dr. Duarte (2) Hypokalemia: K: 3.2 on admission K stable 4.2 today Stable (3) Hypomagnesemia: Magnesium: 1.7 on admission Mg 1.9 stable Continue monitor electrolytes (4) HTN (hypertension): Continue amlodipine (5) Dyslipidemia: Will resume statin on discharge (6) GERD (gastroesophageal reflux disease): Continue PPI Severe protein-calorie malnutrition Underweight BMI 17.0 Encourage pt to increase protein in her diet DVT Prophylaxis on SCDs Full Code Admission and Anticipated Discharge Date Admission Date: December 23, 2019 Subjective Pt was seen and examined Sitting in bed with no distress Pt said that she slept well last night She said that she feels much better today She said that she only had a bowel movement this morning with very small amount of blood She tolerated her diet this morning Denies any chest pain, palpitation, dizziness and SOB Physical Exam Physical Exam: General- No acute distress Head- atraumatic Eyes- PERRL, EOMI, ENT- oropharynx clear Neck- supple, no JVD Lungs- clear to auscultation Heart- regular rhythm; no murmur Abdomen- normal bowel sounds, soft, +mild tender with deep palpation Extremities- no calf tenderness Neuro- alert, oriented x 3; PERRL, EOMI; no facial palsy; no dysarthria Skin- warm & dry Results & Data Results & Data ([facility]) Vital Signs (Past 12 Hours) Vital Signs Temp Pulse Resp BP Pulse Ox 12/25/19 06:50 36.7 C 85 16 146/86 H 97
--- NOTE | 2019-12-26 08:48 | Discharge Summary ---
Date of Service December 25, 2019 Admission HPI Per Admitting Provider Pt is 69 y/o F with PMH ulcerative colitis, hypertension, dyslipidemia, GERD scented to ER with complaint of rectal pain, mucus and blood-tinged BMs x 8 weeks. Reports 8 pound weight loss in the past 2 weeks. Follows with GI-Dr. Duarte outpatient. Pt states 2 weeks ago had temp of 100-102F and had outpatient CT abd/pelvis to r/o abscess and did not have abscess. Has not had recurrent fevers. Has tried hydrocortisone enemas, mesalamine enemas without relief. Patient reports last use enemas approximately 12 days ago. She does note last time she tried to use an enema she had output through her vagina. Patient reports decreased oral intake. Reports rectal and vaginal pressure and pain. Denies urinary symptoms. Denies diffuse watery diarrhea. Last week patient has been having increased generalized weakness. Denies diaphoresis, N/V, THAPA, dizziness, syncope, vision changes, neck pain, CP, SOB, orthopnea, palpitations, cough, sore throat, choking, otalgia, rhinorrhea, paresthesias, extremity edema, rashes. 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 History colonoscopy 05/2019: Normal examined portion of ileum, normal colon, normal distal rectum and anal verge. Admission Exam Per Admitting Provider General: no distress, thin female Head: normocephalic, atraumatic Eyes: conjunctiva non-injected, anicteric ENT: normal inspection external ears, nose, mucous membranes mildly dry Neck: supple, trachea midline Lungs: clear, no respiratory distress, no wheezing/rhonchi/rales CV: RRR, no murmur, no pretibial edema Abd: normal BS, soft, no significant tenderness to palpation Ext: no cyanosis, no calf tenderness Neuro: A&O x 3, no focal deficits noted, normal affect Skin: warm, dry Principal Diagnosis Exacerbation of ulcerative colitis Hypokalemia Hypomagnesemia HTN (hypertension) Dyslipidemia Discharge Exam General- No acute distress Head- atraumatic Eyes- PERRL, EOMI, ENT- oropharynx clear Neck- supple, no JVD Lungs- clear to auscultation Heart- regular rhythm; no murmur Abdomen- normal bowel sounds, soft, +mild tender with deep palpation Extremities- no calf tenderness Neuro- alert, oriented x 3; PERRL, EOMI; no facial palsy; no dysarthria Skin- warm & dry Discharge Data Allergies Allergy/AdvReac Type Severity Reaction Status Date / Time niacin Allergy Unknown RASH AND Verified 12/23/19 13:27 ITCHY prednisone Allergy Unknown SUICIDAL Verified 12/23/19 13:27 THOUGHTS Sulfa (Sulfonamide Allergy Unknown "FEEL LIKE Verified 12/23/19 13:27 Antibiotics) I SWALLOWED PEPPER" & Rash lovastatin AdvReac Unknown MUSCLE Verified 12/23/19 13:27 SORENESS rosuvastatin AdvReac Unknown MUSCLE Verified 12/23/19 13:27 SORENESS simvastatin AdvReac Unknown MUSCLE Verified 12/23/19 13:27 SORENESS [id number] Reductase AdvReac Unknown MUSCLE Verified 12/23/19 13:27 Inhibitor SORENESS Consultations 12/23/19 14:12 ED Decision to Admit Stat 12/23/19 16:00 Consult Gastroenterology Routine Hospital Course (1) Exacerbation of ulcerative colitis: Present on admission with rectal pain, blood and mucus in stools for the last 2 weeks MRI pelvis with and without contrast on 12/21/2019 with impression: Severe ulcerative colitis involving descending colon, sigmoid colon and rectum with 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 WBC: 14, CRP: 17, ESR: 50 On IV solumedrol q8h, but pt said that she cannot tolerate the IV steroid, will transition to PO On IV flagyl and Cipro Stools for C-diff negative and stool cx no growth Blood cx no growth Tolerated diet gastro on board Case discussed with Dr. Duarte that recommended continue Flagyl and Cipro GI recommended a taper dose prednisone 40mg tthen decrease by 5mg each weak on discharge Clinically improves significantly Follow up with GI oupatient Dr. Duarte (2) Hypokalemia: K: 3.2 on admission K stable 4.2 today Stable (3) Hypomagnesemia: Magnesium: 1.7 on admission Mg 1.9 stable Continue monitor electrolytes (4) HTN (hypertension): Continue amlodipine (5) Dyslipidemia: Will resume statin on discharge (6) GERD (gastroesophageal reflux disease): Continue PPI Severe protein-calorie malnutrition Underweight BMI 17.0 Encourage pt to increase protein in her diet DVT Prophylaxis on SCDs Full Code Total Time Total Time Spent Total Time Spent (In Minutes): 35 minutes Total Time Includes: Examination of the Patient, Discharge Planning, Medication Reconciliation, Communication With Other Providers and Other Discharge Plan Discharge Items Patient Disposition: Home - Self-Care Reason For Visit: ULCERATIVE COLITIS FLARE Discharge Diagnosis: Exacerbation of ulcerative colitis Hypokalemia Hypomagnesemia HTN (hypertension) Dyslipidemia Activity: Resume your previous activity Non-emergency contact: Primary Care Provider Call non-emergency contact if: you have any medication questions Follow-up/Referrals: Martine Serna MD [Primary Care Provider] - 12/28/19 3:20 pm (12/28/2019 3:20 PM Provider Martine Serna MD Department Internal Medicine [facility] ) Diet: Low Fiber Addtl Attending Provider Instructions: Follow up with your primary care provider Dr. Serna on 12/28/19 @ 3:20 PM Follow up with your Gastroenterology Dr. Duarte (Please call to schedule for the appointment ) Complete the course of the antibiotic with Cipro and Flagyl Complete course of prednisone taper (decrease by 5 mg each weak ) Prednisone taper course (Take 40 mg for 1 week, then 30 mg for 1 week, 25 mg for 1 week, 20mg for 1 week, 15mg for 1 week, 10mg for 1 week, 5mg for 1 week). (Script printed) Pending Studies at Discharge: No Stand-Alone Forms: My [facility] Health Access, Smoking Cessation Medications and DC Order Prescriptions: New prednisone 10 mg tablet 10 mg PO UD Qty: 100 RF: 0 ciprofloxacin HCl [Cipro] 500 mg tablet 500 mg PO BID 5 Days Qty: 10 RF: 0 metronidazole [Flagyl] 500 mg tablet 500 mg PO Q8H 5 Days Qty: 15 RF: 0 Continued acetaminophen [Tylenol Extra Strength] 500 mg Tablet 1,000 mg PO Q6H PRN (Reason: Pain) RF: 0 budesonide [Entocort EC] 3 mg capsule,delayed,extend.release 3 mg PO DIRECTED RF: 0 ezetimibe [Zetia] 10 mg tablet 10 mg PO QAM RF: 0 amlodipine 5 mg Tablet 5 mg PO QAM RF: 0 valacyclovir [Valtrex] 500 mg Tablet 500 mg PO QAM RF: 0 tramadol 50 mg Tablet 50 mg PO Q8H PRN (Reason: Pain) RF: 0 diphenhydramine HCl [Benadryl] 25 mg Capsule 25 mg PO HS RF: 0 omeprazole 20 mg Capsule,Delayed Release(Dr/Ec) 20 mg PO QAM RF: 0 folic acid 1 mg Tablet 1 mg PO QAM RF: 0 azelaic acid [Finacea] 15 % Gel 1 applic TOPICAL UD PRN (Reason: ROSACIA ) RF: 0 mesalamine [Lialda] 1.2 gram Tablet,Delayed Release (Dr/Ec) 3.6 g PO QAM RF: 0 cholecalciferol (vitamin D3) [Vitamin D3] 2,000 unit Tablet 2,000 unit PO DAILY RF: 0 calcium lactate 100 mg calcium Tablet 600 mg PO QAM RF: 0 Chaste Tree 1 dose PO QAM RF: 0 Discharge Orders: Discharge Order (Routine); Ordered 12/25/19 Ordered By: Antonio Corbett Admission Data Admit Date/Time: 12/23/19 14:41 Attending Provider: Antonio Corbett Admit Provider: Buzz Osorio Primary Care Provider: Martine Serna Other Providers: Buzz Osorio ; Swathi Duarte Other Interventions: Discharge Summary Assessment (RN) Last Done: 12/25/19 13:46 DC Date/Time DO NOT enter until pt leaves facility: 12/25/19 14:19
== END 2019-12-25 14:19 | disposition home or self-care (01) | DRG 385 ==
LOC: ED 11:42 → 3W 14:41 → SUATTDRO 14:41 → 3W 15:41

== ENCOUNTER 2020-06-15 13:29 | Observation (INO) ==
--- NOTE | 2020-06-15 13:59 | Emergency Department Note ---
History of Present Illness General Chief complaint: Abdominal Pain Time Seen by Provider: 06/15/20 13:45 Source: patient Mode of arrival: EMS History of Present Illness Provider complaint: Abdominal pain Onset (ago): day(s) Location: abdomen and right Radiation: back and other (Chest) Severity: moderate Pain Consistency: + constant Maximum Pain Intensity: 3 Quality: + burning and + other (Soreness) Relieved By: + medication (Aspirin) Associated symptoms: + nausea/vomiting (Dry heaves); no cough, no diaphoresis, no fever/chills and no shortness of breath This is a 70-year-old female who presents with abdominal pain. The patient has a history of ulcerative colitis. She developed pain yesterday evening before supper which she describes as a burning soreness. It was diffuse throughout her abdomen. It kept her up all night. No alleviating factors. No associated fever. This afternoon at about 1230 she developed pain radiating into her lower chest. She described the pain as a gas-like pain. She was concerned it was her heart and so they called the ambulance. They gave her aspirin and she now states that her pain is only in the right lower quadrant. She denies having any associated shortness of breath or diaphoresis. She has no prior history of cardiac disease. She states the discomfort in her lower chest felt like gas and did not feel like tightness or pressure or heaviness. She denies any issues with urination. She had a normal bowel movement today without hematochezia or melena. She did have some dry heaves but no longer feels nauseated. She did have COVID-19 in March but has fully recovered from that. She denies any leg swelling or pain. She now states that her pain is only in her right lower quadrant. It feels like a soreness which is worse when she touches it. Home Medications Medication Instructions Recorded Confirmed Type Chaste Tree 1 dose PO QAM 06/08/19 06/15/20 History amlodipine 5 mg PO QAM 06/08/19 06/15/20 History azelaic acid [Finacea] 1 applic TOPICAL UD PRN 06/08/19 06/15/20 History calcium lactate 600 mg PO QAM 06/08/19 06/15/20 History cholecalciferol (vitamin D3) 2,000 unit PO QAM 06/08/19 06/15/20 History [Vitamin D3] diphenhydramine HCl [Benadryl] 25 mg PO HS 06/08/19 06/15/20 History folic acid 1 mg PO QAM 06/08/19 06/15/20 History mesalamine [Lialda] 3.6 g PO QAM 06/08/19 06/15/20 History omeprazole 20 mg PO QAM 06/08/19 06/15/20 History tramadol 50 mg PO Q8H PRN 06/08/19 06/15/20 History valacyclovir [Valtrex] 500 mg PO QAM 06/08/19 06/15/20 History ezetimibe [Zetia] 10 mg PO QAM 12/23/19 06/15/20 History Allergies Allergy/AdvReac Type Severity Reaction Status Date / Time niacin Allergy Unknown RASH AND Verified 06/15/20 14:45 ITCHY prednisone Allergy Unknown SUICIDAL Verified 06/15/20 14:45 THOUGHTS Sulfa (Sulfonamide Allergy Unknown "FEEL LIKE Verified 06/15/20 14:45 Antibiotics) I SWALLOWED PEPPER" & Rash lovastatin AdvReac Unknown MUSCLE Verified 06/15/20 14:45 SORENESS rosuvastatin AdvReac Unknown MUSCLE Verified 06/15/20 14:45 SORENESS simvastatin AdvReac Unknown MUSCLE Verified 06/15/20 14:45 SORENESS Cwyaxro-Uas-Zsy Reductase AdvReac Unknown MUSCLE Verified 06/15/20 14:45 Inhibitor SORENESS Past Med/Surg History Medical History (Updated 06/15/20 @ 19:09 by Spike Alvarez MD) Dyslipidemia GERD (gastroesophageal reflux disease) History of basal cell carcinoma REMOVED History of kidney stones X1 EPISODE - MANY YRS AGO HTN (hypertension) Osteoarthritis Rosacea Shoulder problem R Ulcerative colitis Surgical History History of colonoscopy History of repair of right rotator cuff History of right knee surgery History of tubal ligation Family History Other COPD (chronic obstructive pulmonary disease) Hypertension Social History Smoking Status: Never smoker Second Hand Exposure: No; Hx Alcohol Use: No Hx Substance Use: No Preferred Language: Divehi Communication Ability: Effective [employer] Required: No Beliefs That Will Affect Care: None Current Living Situation: Spouse Feels Safe at Home: Yes Assistive Devices: None Review of Systems See HPI for pertinent positives & negatives. and A total of 10 systems reviewed and were otherwise negative Physical Exam Vital Signs Vital Signs - 24 hr 06/15/20 13:34 06/15/20 13:42 06/15/20 13:54 Temperature 36.8 C Temperature Source Oral Pulse Rate 85 88 87 Pulse Rate from SpO2 Sensor 86 86 Respiratory Rate 14 15 16 Respiratory Depth Normal Blood Pressure 150/96 H 150/96 H Blood Pressure Mean 114 114 Blood Pressure Position Sitting Pulse Oximetry 96 97 97 Oxygen Delivery Method Room Air Room Air Sepsis Recent Fever Within 48 Hours No Sepsis New/Unexplained Change in Mental Status No Sepsis Action Taken by Nursing No Action Required 06/15/20 14:00 06/15/20 14:30 06/15/20 15:00 Temperature Temperature Source Pulse Rate 85 84 78 Pulse Rate from SpO2 Sensor 84 Respiratory Rate 19 17 19 Respiratory Depth Blood Pressure Blood Pressure Mean Blood Pressure Position Pulse Oximetry 97 Oxygen Delivery Method Room Air Sepsis Recent Fever Within 48 Hours Sepsis New/Unexplained Change in Mental Status Sepsis Action Taken by Nursing 06/15/20 15:30 06/15/20 15:56 06/15/20 17:42 Temperature Temperature Source Pulse Rate 83 82 Pulse Rate from SpO2 Sensor Respiratory Rate 19 15 Respiratory Depth Blood Pressure 173/98 H Blood Pressure Mean 123 Blood Pressure Position Pulse Oximetry Oxygen Delivery Method Room Air Sepsis Recent Fever Within 48 Hours Sepsis New/Unexplained Change in Mental Status Sepsis Action Taken by Nursing Constitutional: Vital signs reviewed. Eyes: Pupils are equal round reactive to light. Conjunctiva are noninjected. ENT: Pharynx is clear without erythema or exudate. Mucous membranes are moist. Neck supple without meningeal signs. Respiratory: Clear to auscultation bilaterally. Breath sounds are equal bilaterally. Cardiovascular: Regular rate and rhythm. No rubs or gallops. GI: Soft, nondistended with tenderness in the right lower quadrant. No guarding. Bowel sounds are present. Musculoskeletal: No peripheral edema. No lower extremity tenderness. No CVA tenderness. Integumentary: No cyanosis. or jaundice. Neurological: The patient is awake and alert. No focal deficits. Psychiatric: Normal affect. Course Administered Medications Sodium Chloride (Nss) 500 mls @ 125 mls/hr IV .Q4H EMY Stop: 07/15/20 16:29 Last Admin: 06/15/20 16:51 Dose: 125 mls/hr Documented by: [id number] Discontinued Medications Cefoxitin Sodium (Mefoxin) 2,000 mg in 60 mls @ 100 mls/hr IV NOW STA Stop: 06/15/20 17:05 Last Infusion: 06/15/20 17:55 Dose: 0 mls/hr Documented by: [id number] Admin: 06/15/20 16:51 Dose: 100 mls/hr Documented by: [id number] Ioversol (Ioversol 100ml) 93 ml IV ONCE ONE Stop: 06/15/20 14:02 Last Admin: 06/15/20 14:01 Dose: 93 ml Documented by: [id number] Medical Decision Making Differential Diagnosis Acute appendicitis, perforation, abscess, colitis, pancreatitis Medical Records I did perform a limited focused review of portions of the patient's old chart on the electronic medical record. The patient has had no recent pertinent visits to this hospital. Home Medications Current Medication List: was personally reviewed by me Laboratory Data Attestation: I reviewed the patient's lab results. Result diagrams: 06/15/20 14:05 06/15/20 14:05 Lab Results 06/15/20 06/15/20 06/15/20 Range/Units 14:05 14:05 15:00 WBC 16.03 H (4.8-10.8) K/uL RBC 3.90 L (4.2-5.4) M/uL Hgb 12.2 (12.0-16.0) g/dL Hct 36.2 L (37-47) % MCV 92.8 (80-100) fL MCH 31.3 (25-34) pg MCHC 33.7 (32-36) g/dL RDW Std Deviation 44.0 (36.4-46.3) fL RDW Coeff of Gadiel 13.0 (11.5-14.5) % Plt Count 378 (130-400) K/uL MPV 8.3 (7.4-10.4) fL Immature Gran % (Auto) 0.2 % Neut % (Auto) 84.8 % Lymph % (Auto) 7.5 % Cecil % (Auto) 7.2 % Eos % (Auto) 0.1 % Baso % (Auto) 0.2 % Neut # (Auto) 13.58 H (1.4-6.5) K/uL Lymph # (Auto) 1.20 (1.2-3.4) K/uL Cecil # (Auto) 1.15 H (0.11-0.59) K/uL Eos # (Auto) 0.02 (0-0.5) K/uL Baso # (Auto) 0.04 (0-0.2) K/uL Immature Gran # (Auto) 0.04 H (0.00-0.02) K/uL Sodium 136 (136-145) mmol/L Potassium 3.3 L (3.5-5.1) mmol/L Chloride 103 (98-107) mmol/L Carbon Dioxide 26 (21-32) mmol/L Anion Gap 7.0 (3-11) BUN 11 (7-18) mg/dl Creatinine 0.70 (0.6-1.2) mg/dl Est Cr Clr Drug Dosing 53.6 ml/min Est GFR ( Amer) 102.5 Est GFR (Non-Af Amer) 88.4 BUN/Creatinine Ratio 16.1 (10-20) Glucose 122 H (70-99) mg/dl Calcium 8.8 (8.5-10.1) mg/dl Total Bilirubin 0.6 (0.2-1) mg/dl AST 7 L (15-37) U/L ALT 24 (12-78) U/L Alkaline Phosphatase 93 (45-117) U/L Troponin I < 0.015 (0-0.045) ng/ml Total Protein 7.3 (6.4-8.2) gm/dl Albumin 3.8 (3.4-5.0) gm/dl Globulin 3.5 (2.5-4.0) gm/dl Albumin/Globulin Ratio 1.1 (0.9-2) Lipase 84 (73-393) U/L Urine Color Yellow Urine Appearance Clear (Clear) Urine pH 7.0 (4.5-7.5) Ur Specific [place] 1.015 (1.000-1.030) Urine Protein Negative (Negative) Urine Glucose (UA) Negative (Negative) Urine Ketones Trace H (Negative) Urine Blood Negative (Negative) Urine Nitrite Negative (Negative) Urine Bilirubin Negative (Negative) Urine Urobilinogen Negative (Negative) Ur Leukocyte Esterase Negative (Negative) COVID-19 Eval Order SARS-CoV-2, RNA, NAAT (NEGATIVE) 06/15/20 06/15/20 Range/Units 16:32 16:32 WBC (4.8-10.8) K/uL RBC (4.2-5.4) M/uL Hgb (12.0-16.0) g/dL Hct (37-47) % MCV (80-100) fL MCH (25-34) pg MCHC (32-36) g/dL RDW Std Deviation (36.4-46.3) fL RDW Coeff of Gadiel (11.5-14.5) % Plt Count (130-400) K/uL MPV (7.4-10.4) fL Immature Gran % (Auto) % Neut % (Auto) % Lymph % (Auto) % Cecil % (Auto) % Eos % (Auto) % Baso % (Auto) % Neut # (Auto) (1.4-6.5) K/uL Lymph # (Auto) (1.2-3.4) K/uL Cecil # (Auto) (0.11-0.59) K/uL Eos # (Auto) (0-0.5) K/uL Baso # (Auto) (0-0.2) K/uL Immature Gran # (Auto) (0.00-0.02) K/uL Sodium (136-145) mmol/L Potassium (3.5-5.1) mmol/L Chloride (98-107) mmol/L Carbon Dioxide (21-32) mmol/L Anion Gap (3-11) BUN (7-18) mg/dl Creatinine (0.6-1.2) mg/dl Est Cr Clr Drug Dosing ml/min Est GFR ( Amer) Est GFR (Non-Af Amer) BUN/Creatinine Ratio (10-20) Glucose (70-99) mg/dl Calcium (8.5-10.1) mg/dl Total Bilirubin (0.2-1) mg/dl AST (15-37) U/L ALT (12-78) U/L Alkaline Phosphatase (45-117) U/L Troponin I (0-0.045) ng/ml Total Protein (6.4-8.2) gm/dl Albumin (3.4-5.0) gm/dl Globulin (2.5-4.0) gm/dl Albumin/Globulin Ratio (0.9-2) Lipase (73-393) U/L Urine Color Urine Appearance (Clear) Urine pH (4.5-7.5) Ur Specific [place] (1.000-1.030) Urine Protein (Negative) Urine Glucose (UA) (Negative) Urine Ketones (Negative) Urine Blood (Negative) Urine Nitrite (Negative) Urine Bilirubin (Negative) Urine Urobilinogen (Negative) Ur Leukocyte Esterase (Negative) COVID-19 Eval Order Covid19 IDNow [facility] SARS-CoV-2, RNA, NAAT NEGATIVE (NEGATIVE) Imaging Data Radiologist's Impression: ABDOMEN AND PELVIS CT WITH IV CONTRAST CT DOSE: 219.60 mGy.cm HISTORY: Acute right lower quadrant abdominal pain RLQ pain eval for appe TECHNIQUE: Multiaxial CT images of the abdomen and pelvis were performed following the IV administration of 93 cc of Optiray 320, A dose lowering technique was utilized adhering to the principles of ALARA. COMPARISON STUDY: CT abdomen and pelvis 11/07/2012 FINDINGS: Imaged inferior cardiac chambers are unremarkable. Clear lung bases. No pneumatosis or pneumoperitoneum. The spleen, pancreas, adrenal glands, gallbladder and liver appear unremarkable. Patency of the hepatic and portal veins. Bilateral renal cysts. 4 mm nonobstructing calculus of the superior pole right kidney. Mild urinary bladder distention. Unremarkable uterus and adnexa. Calcified plaque of the abdominal aorta without aneurysm. Unremarkable IVC. No adenopathy. There is no bowel obstruction. Decompressed sigmoid colon. The appendix is dilated measuring up to 1.5 cm transversely and demonstrates mucosal hyperemia with periappendiceal edema and trace free fluid. No perforation or drainable fluid collection. Unremarkable soft tissues. The bones appear intact. Grade 1 anterolisthesis L5 on S1 is likely secondary to chronic facet arthrosis. There is no acute fracture. IMPRESSION: 1. Acute uncomplicated appendicitis. No evidence of perforation or abscess. 2. No bowel obstruction. 3. Nonobstructing right nephrolithiasis. 4. Additional findings as above. ACT 112: Negative or not required by law. The above report was generated using voice recognition software. It may contain grammatical, syntax or spelling errors. Electronically signed by: Med Schmidt M.D. 06/15/2020 4:04 PM ECG Data Attestation: I personally reviewed and interpreted this ECG as follows: Indication: + abdominal pain Rate (beats per minute): 84 Rhythm: + normal sinus ECG ST segments: + Nonspecific ST abnormalities; no ST elevation ECG Findings: no PVCs MDM Narrative I did evaluate the patient as noted above. The patient is presenting with abdominal pain that radiated to her chest but is now localized to the right lower quadrant. She is significantly tender in that region and I was concerned about acute appendicitis. IV access was established. She declined any pain or nausea medication. I did place an order for continuous cardiac monitoring. The monitor showed normal sinus rhythm at a rate of 83 bpm. I did order and personally review the patient's 12-lead EKG as described above. She has no evidence of STEMI. She does have some nonspecific ST changes. I did order a urine analysis. She does not have a UTI. I did order and review the patient's blood work as noted in the electronic medical record. Her white count is elevated over 16,000. Electrolytes are unremarkable other than a mild hypokalemia. I did order a CT of the abdomen and pelvis. I did review the images myself as well as the radiology report as described above. She does have an acute uncomplicated appendicitis without evidence of perforation or abscess. I did discuss the test results with the patient. I did discuss case with Dr. Rodriguez from surgery. He requested IV fluids and antibiotics. I did order normal saline IV and cefoxitin IV. The patient was taken to the OR for appendectomy. Impression & Plan Acute appendicitis, Hypokalemia Discharge Plan Visit Data Chief Complaint: Abdominal Pain ED Provider: Spike Alvarez Discharge Problem: Acute appendicitis, Hypokalemia Patient Disposition: Being Evaluated by Surgeon Discharge Instructions Interventions: ED Discharge Assessment Last Done: 06/15/20 17:42
[2020-06-15] MEDS ORDERED: IOVERSOL 100ml IV ONE (14:01)
[2020-06-15 14:20] LABS: Basophils # (auto) 0.04 K/uL (0-0.2); Basophils % (auto) 0.2 %; Eosinophils # (auto) 0.02 K/uL (0-0.5); Eosinophils % (auto) 0.1 %; Hematocrit (blood only) 36.2 % (37-47); Hemoglobin 12.2 g/dL (12.0-16.0); Immature Granulocytes # (auto) 0.04 K/uL (0.00-0.02); Immature Granulocytes % (auto) 0.2 %; Lymphocytes % (auto) 7.5 %; Mean Corpuscular Hemoglobin 31.3 pg (25-34); Mean Corpuscular Hgb Conc 33.7 g/dL (32-36); Mean Corpuscular Volume 92.8 fL (80-100); Mean Platelet Volume 8.3 fL (7.4-10.4); Monocytes # (auto) 1.15 K/uL (0.11-0.59); Monocytes % (auto) 7.2 %; Neutrophils # (auto) 13.58 K/uL (1.4-6.5); Neutrophils % (auto) 84.8 %; Platelet Count 378 K/uL (130-400); White Blood Count 16.03 K/uL (4.8-10.8)
[2020-06-15 14:40] LABS: Alanine Aminotransferase 24 U/L (12-78); Albumin Level 3.8 gm/dl (3.4-5.0); Aspartate Aminotransferase 7 U/L (15-37); BUN Creatinine Ratio 16.1 (10-20); Blood Urea Nitrogen 11 mg/dl (7-18); Calcium 8.8 mg/dl (8.5-10.1); Carbon Dioxide 26 mmol/L (21-32); Chloride 103 mmol/L (98-107); Creatinine Clr Calc Pharmacy 53.6 ml/min; Est GFR (African American) 102.5; Est GFR (Non-African American) 88.4; Glucose 122 mg/dl (70-99); Lipase 84 U/L (73-393); Potassium 3.3 mmol/L (3.5-5.1); Sodium 136 mmol/L (136-145)
[2020-06-15 14:45] LABS: Albumin Globulin Ratio 1.1 (0.9-2); Alkaline Phosphatase 93 U/L (45-117); Bilirubin,Total 0.6 mg/dl (0.2-1); Globulin 3.5 gm/dl (2.5-4.0); Total Protein 7.3 gm/dl (6.4-8.2); Troponin I < 0.015 ng/ml (0-0.045)
[2020-06-15 15:12] LABS: Appearance Urine Clear (Clear); Bilirubin Urine Negative (Negative); Blood Urine Negative (Negative); Color Urine Yellow; Glucose Urine UA Negative (Negative); Ketones Urine Trace (Negative); Leukocyte Esterase Urine Negative (Negative); Nitrite Urine Negative (Negative); Protein Urine Negative (Negative); Specific Gravity Urine 1.015 (1.000-1.030); Urobilinogen Urine Negative (Negative)
--- NOTE | 2020-06-15 16:06 | CT Scan Report ---
ABDOMEN AND PELVIS CT WITH IV CONTRAST CT DOSE: 219.60 mGy.cm HISTORY: Acute right lower quadrant abdominal pain RLQ pain eval for appe TECHNIQUE: Multiaxial CT images of the abdomen and pelvis were performed following the IV administrat ion of 93 cc of Optiray 320, A dose lowering technique was utilized adhering to the principles of [place] ALEXANDRA. COMPARISON STUDY: CT abdomen and pelvis 11/07/2012 FINDINGS: Imaged inferior cardiac chambers are unremarkable. Clear lung bases. No pneumatosis or pneu moperitoneum. The spleen, pancreas, adrenal glands, gallbladder and liver appear unremarkable. Patenc y of the hepatic and portal veins. Bilateral renal cysts. 4 mm nonobstructing calculus of the superio r pole right kidney. Mild urinary bladder distention. Unremarkable uterus and adnexa. Calcified plaqu e of the abdominal aorta without aneurysm. Unremarkable IVC. No adenopathy. There is no bowel obstruction. Decompressed sigmoid colon. The appendix is dilated measuring up to 1. 5 cm transversely and demonstrates mucosal hyperemia with periappendiceal edema and trace free fluid. No perforation or drainable fluid collection. Unremarkable soft tissues. The bones appear intact. Gr adriana 1 anterolisthesis L5 on S1 is likely secondary to chronic facet arthrosis. There is no acute frac ture. IMPRESSION: 1. Acute uncomplicated appendicitis. No evidence of perforation or abscess. 2. No bowel obstruction. 3. Nonobstructing right nephrolithiasis. 4. Additional findings as above. ACT 112: Negative or not required by law. The above report was generated using voice recognition software. It may contain grammatical, syntax o r spelling errors. Electronically signed by: Med Schmidt M.D. 06/15/2020 4:04 PM
[2020-06-15] MEDS ORDERED: cefOXitin 2,000 MG/60 ML BAG IV STA (16:30)
[2020-06-15] MEDS ORDERED: SODIUM CHLORIDE 0.9% 500 ML IV SCH (16:30)
[2020-06-15] MEDS ORDERED: DEXAMETHASONE SOD INJ 4 MG/ML VIAL ONE (17:15)
[2020-06-15] MEDS ORDERED: SUCCINYLCHOLINE 100MG/5ML SYR IV ONE (17:15)
[2020-06-15] MEDS ORDERED: LIDOCAINE HCL 2% 2 ML VIAL/AMP(20MG/ML) INFIL ONE (17:15)
[2020-06-15] MEDS ORDERED: ONDANSETRON INJ 2 MG/ML 2 ML VIAL ONE (17:15)
[2020-06-15] MEDS ORDERED: ROCURONIUM BROMIDE 10 MG/ML 5 ML VIAL IV ONE (17:15)
[2020-06-15] MEDS ORDERED: PROPOFOL IV EMULSION 10 MG/ML 20 ML VIAL IV ONE ×2 (17:15→19:03)
[2020-06-15] MEDS ORDERED: fentaNYL citrate 100 MCG/2 ML VIAL ONE (17:16)
--- NOTE | 2020-06-15 17:42 | Anesthesiology Consultation ---
Date of Service June 15, 2020 Covid 19 negative today. Assessment & Plan (1) Encounter for pre-operative examination: Chart Review Chart Review: Acceptable Risk for Surgery and Patient NOT seen in Pre Admission Testing Consults Requested none History Surgery Operation Date: 06/15/20 06:00 Proposed Procedures p Laparoscopic Appendectomy - Kaleb Rodriguez MD Height/Weight Height: 5 ft Weight: 44.8 kg Allergies Allergy/AdvReac Type Severity Reaction Status Date / Time niacin Allergy Unknown RASH AND Verified 06/15/20 14:45 ITCHY prednisone Allergy Unknown SUICIDAL Verified 06/15/20 14:45 THOUGHTS Sulfa (Sulfonamide Allergy Unknown "FEEL LIKE Verified 06/15/20 14:45 Antibiotics) I SWALLOWED PEPPER" & Rash lovastatin AdvReac Unknown MUSCLE Verified 06/15/20 14:45 SORENESS rosuvastatin AdvReac Unknown MUSCLE Verified 06/15/20 14:45 SORENESS simvastatin AdvReac Unknown MUSCLE Verified 06/15/20 14:45 SORENESS Ngbyigq-Gxy-Emm Reductase AdvReac Unknown MUSCLE Verified 06/15/20 14:45 Inhibitor SORENESS Medications Home Medications Medication Instructions Recorded Confirmed Last Taken Chaste Tree 1 dose PO QAM 06/08/19 06/15/20 06/15/20 amlodipine 5 mg PO QAM 06/08/19 06/15/20 06/15/20 azelaic acid [Finacea] 1 applic TOPICAL UD PRN 06/08/19 06/15/20 12/23/19 calcium lactate 600 mg PO QAM 06/08/19 06/15/20 06/15/20 cholecalciferol (vitamin D3) 2,000 unit PO QAM 06/08/19 06/15/20 06/15/20 [Vitamin D3] diphenhydramine HCl [Benadryl] 25 mg PO HS 06/08/19 06/15/20 06/14/20 folic acid 1 mg PO QAM 06/08/19 06/15/20 06/15/20 mesalamine [Lialda] 3.6 g PO QAM 06/08/19 06/15/20 06/15/20 omeprazole 20 mg PO QAM 06/08/19 06/15/20 06/15/20 tramadol 50 mg PO Q8H PRN 06/08/19 06/15/20 06/15/20 valacyclovir [Valtrex] 500 mg PO QAM 06/08/19 06/15/20 06/15/20 ezetimibe [Zetia] 10 mg PO QAM 12/23/19 06/15/20 06/15/20 Active Medications Generic Name Dose Route Start Last Admin Trade Name Freq PRN Reason Stop Dose Admin Sodium Chloride 500 mls @ 125 mls/hr 06/15/20 16:30 06/15/20 16:51 Nss IV 07/15/20 16:29 125 mls/hr .Q4H EMY Administration Past Medical History Medical History (Updated 06/15/20 @ 17:44 by Kaleb Rodriguez MD) Dyslipidemia GERD (gastroesophageal reflux disease) History of basal cell carcinoma REMOVED History of kidney stones X1 EPISODE - MANY YRS AGO HTN (hypertension) Osteoarthritis Rosacea Shoulder problem R Ulcerative colitis Past Family History Family History Other COPD (chronic obstructive pulmonary disease) Hypertension Past Surgical History Surgical History History of colonoscopy History of repair of right rotator cuff History of right knee surgery History of tubal ligation Social History Smoking Status: Never smoker Hx Alcohol Use: No Alcohol type: wine alcohol intake frequency: 0-2 drinks per day Hx Substance Use: No substance use type: does not use Physical Exam Vital Signs Last Vital Signs Temp 36.8 C 06/15/20 13:42 Pulse 82 06/15/20 15:56 Resp 15 06/15/20 15:56 BP 173/98 H 06/15/20 15:56 Pulse Ox 97 06/15/20 14:30 Testing Laboratory Results 06/15/20 14:05 06/15/20 14:05 Urine Color Yellow 06/15/20 15:00 Urine Appearance Clear (Clear) 06/15/20 15:00 Urine pH 7.0 (4.5-7.5) 06/15/20 15:00 Ur Specific [place] 1.015 (1.000-1.030) 06/15/20 15:00 Urine Protein Negative (Negative) 06/15/20 15:00 Urine Glucose (UA) Negative (Negative) 06/15/20 15:00 Urine Ketones Trace (Negative) H 06/15/20 15:00 Urine Nitrite Negative (Negative) 06/15/20 15:00 Ur Leukocyte Esterase Negative (Negative) 06/15/20 15:00 Electrocardiogram Date: 06/15/20 Findings: + NSR @ (84) and + NSST changes L atrial enlargement Other Testing ABDOMEN AND PELVIS CT WITH IV CONTRAST CT DOSE: 219.60 mGy.cm HISTORY: Acute right lower quadrant abdominal pain RLQ pain eval for appe TECHNIQUE: Multiaxial CT images of the abdomen and pelvis were performed following the IV administration of 93 cc of Optiray 320, A dose lowering technique was utilized adhering to the principles of ALARA. COMPARISON STUDY: CT abdomen and pelvis 11/07/2012 FINDINGS: Imaged inferior cardiac chambers are unremarkable. Clear lung bases. No pneumatosis or pneumoperitoneum. The spleen, pancreas, adrenal glands, g allbladder and liver appear unremarkable. Patency of the hepatic and portal veins. Bilateral renal cysts. 4 mm nonobstructing calculus of the superior pole right kidney. Mild urinary bladder distention. Unremarkable uterus and adnexa. Calcified plaque of the abdominal aorta without aneurysm. Unremarkable IVC. No adenopathy. There is no bowel obstruction. Decompressed sigmoid colon. The appendix is dilated measuring up to 1.5 cm transversely and demonstrates mucosal hyperemia with periappendiceal edema and trace free fluid. No perforation or drainable fluid collection. Unremarkable soft tissues. The bones appear intact. Grade 1 anterolisthesis L5 on S1 is likely secondary to chronic facet arthrosis. There is no acute fracture. IMPRESSION: 1. Acute uncomplicated appendicitis. No evidence of perforation or abscess. 2. No bowel obstruction. 3. Nonobstructing right nephrolithiasis. 4. Additional findings as above. ACT 112: Negative or not required by law. The above report was generated using voice recognition software. It may contain grammatical, syntax or spelling errors. Electronically signed by: Med Schmidt M.D. 06/15/2020 4:04 PM Dictated: 06/15/20 [id number]
--- NOTE | 2020-06-15 17:43 | History & Physical Report ---
Date of Service June 15, 2020 Assessment & Plan (1) Acute appendicitis with localized peritonitis: IV abx IVF to OR for lap appendectomy Present on Admission?: Yes (2) HTN (hypertension): con't meds Present on Admission?: Yes (3) Ulcerative colitis: con't meds Present on Admission?: Yes History of Present Illness Primary Care Provider: Martine Serna MD This is a 70-year-old female with acute appendicitis by CT scan. She has a history of ulcerative colitis. She developed pain yesterday evening before supper which she describes as a burning soreness, diffuse throughout her abdomen. It kept her up all night. She now states that her pain is only in her right lower quadrant. No alleviating factors. No associated fever. She denies any issues with urination. She had a normal bowel movement today without hematochezia or melena. She did have some dry heaves but no longer feels nauseated. She did have COVID-19 in March but has fully recovered from that. She denies any leg swelling or pain. Allergies Allergy/AdvReac Type Severity Reaction Status Date / Time niacin Allergy Unknown RASH AND Verified 06/15/20 14:45 ITCHY prednisone Allergy Unknown SUICIDAL Verified 06/15/20 14:45 THOUGHTS Sulfa (Sulfonamide Allergy Unknown "FEEL LIKE Verified 06/15/20 14:45 Antibiotics) I SWALLOWED PEPPER" & Rash lovastatin AdvReac Unknown MUSCLE Verified 06/15/20 14:45 SORENESS rosuvastatin AdvReac Unknown MUSCLE Verified 06/15/20 14:45 SORENESS simvastatin AdvReac Unknown MUSCLE Verified 06/15/20 14:45 SORENESS [id number]-[id number]-Qoy Reductase AdvReac Unknown MUSCLE Verified 06/15/20 14:45 Inhibitor SORENESS Home Medications Medication Instructions Recorded Confirmed Type Chaste Tree 1 dose PO QAM 06/08/19 06/15/20 History amlodipine 5 mg PO QAM 06/08/19 06/15/20 History azelaic acid [Finacea] 1 applic TOPICAL UD PRN 06/08/19 06/15/20 History calcium lactate 600 mg PO QAM 06/08/19 06/15/20 History cholecalciferol (vitamin D3) 2,000 unit PO QAM 06/08/19 06/15/20 History [Vitamin D3] diphenhydramine HCl [Benadryl] 25 mg PO HS 06/08/19 06/15/20 History folic acid 1 mg PO QAM 06/08/19 06/15/20 History mesalamine [Lialda] 3.6 g PO QAM 06/08/19 06/15/20 History omeprazole 20 mg PO QAM 06/08/19 06/15/20 History tramadol 50 mg PO Q8H PRN 06/08/19 06/15/20 History valacyclovir [Valtrex] 500 mg PO QAM 06/08/19 06/15/20 History ezetimibe [Zetia] 10 mg PO QAM 12/23/19 06/15/20 History Past Med/Surg History Medical History (Updated 06/15/20 @ 17:44 by Kaleb Rodriguez MD) Dyslipidemia GERD (gastroesophageal reflux disease) History of basal cell carcinoma REMOVED History of kidney stones X1 EPISODE - MANY YRS AGO HTN (hypertension) Osteoarthritis Rosacea Shoulder problem R Ulcerative colitis Surgical History History of colonoscopy History of repair of right rotator cuff History of right knee surgery History of tubal ligation Family History Other COPD (chronic obstructive pulmonary disease) Hypertension Social History Smoking Status: Never smoker Second Hand Exposure: No; Hx Alcohol Use: No Hx Substance Use: No Preferred Language: [place] Communication Ability: Effective 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 Beliefs That Will Affect Care: None Current Living Situation: Spouse Feels Safe at Home: Yes Assistive Devices: None Review of Systems + anorexia; no fever, no chills and no sweats no problem reported no problem reported no cough and no dyspnea no chest pain and no chest pain with activity + abdominal pain and + nausea; no vomiting, no change in bowel habits and no change in stools no dysuria no back pain no rash no localized weakness and no generalized weakness no depression no fatigue, no polydipsia and no polyphagia no easy bleeding and no easy bruising Physical Exam Constitutional: well developed and well nourished; no acute distress Eyes: PERRL, conjunctivae normal, anicteric sclerae ENMT: external ear and nose normal, oropharynx normal Neck: trachea midline Respiratory: normal respiratory effort, lungs clear to auscultation Cardiovascular: RRR, no murmur, no edema Gastrointestinal (Abdomen): Inspection/Auscultation: abdomen normal to inspection and normal bowel sounds; abdomen not distended Percussion/Palpation: + abdomen tender and abdomen soft; no guarding Musculoskeletal: Head/Neck/Chest: normocephalic and head atraumatic Skin: no rashes, warm and dry Neurologic: moves all extremities and awake Psychiatric: Orientation: alert and oriented x 3 ASA Classification ASA ASA2E Results & Data ([facility]) Vital Signs (Past 12 Hours) Vital Signs Temp Pulse Resp BP Pulse Ox 06/15/20 15:56 82 15 173/98 H 06/15/20 15:30 83 19 06/15/20 15:00 78 19 06/15/20 14:30 84 17 97 06/15/20 14:00 85 19 06/15/20 13:54 87 16 97 06/15/20 13:42 36.8 C 88 15 150/96 H 97 06/15/20 13:34 85 14 150/96 H 96 Diagnostic Findings ABDOMEN AND PELVIS CT WITH IV CONTRAST CT DOSE: 219.60 mGy.cm HISTORY: Acute right lower quadrant abdominal pain RLQ pain eval for appe TECHNIQUE: Multiaxial CT images of the abdomen and pelvis were performed following the IV administration of 93 cc of Optiray 320, A dose lowering technique was utilized adhering to the principles of ALARA. COMPARISON STUDY: CT abdomen and pelvis 11/07/2012 FINDINGS: Imaged inferior cardiac chambers are unremarkable. Clear lung bases. No pneumatosis or pneumoperitoneum. The spleen, pancreas, adrenal glands, gallbladder and liver appear unremarkable. Patency of the hepatic and portal veins. Bilateral renal cysts. 4 mm nonobstructing calculus of the superior pole right kidney. Mild urinary bladder distention. Unremarkable uterus and adnexa. Calcified plaque of the abdominal aorta without aneurysm. Unremarkable IVC. No adenopathy. There is no bowel obstruction. Decompressed sigmoid colon. The appendix is dilated measuring up to 1.5 cm transversely and demonstrates mucosal hyperemia with periappendiceal edema and trace free fluid. No perforation or drainable fluid collection. Unremarkable soft tissues. The bones appear intact. Grade 1 anterolisthesis L5 on S1 is likely secondary to chronic facet arthrosis. There is no acute fracture. IMPRESSION: 1. Acute uncomplicated appendicitis. No evidence of perforation or abscess. 2. No bowel obstruction. 3. Nonobstructing right nephrolithiasis. 4. Additional findings as above. Code Status & VTE Plan VTE Prophylaxis Plan VTE Prophylaxis will be ordered: Yes
[2020-06-15] MEDS ORDERED: fentaNYL citrate 100 MCG/2 ML VIAL IV PRN (17:44)
[2020-06-15] MEDS ORDERED: ATROPINE SULFATE 0.1 MG/ML 10ML SYR IV PRN (17:44)
[2020-06-15] MEDS ORDERED: LABETALOL HCL IV 5 MG/ML 20ML IV PRN (17:44)
[2020-06-15] MEDS ORDERED: ePHEDrine sulfate 50 MG/ML AMP IV PRN (17:44)
[2020-06-15] MEDS ORDERED: MEPERIDINE HCL 25 MG/ML CARP/VIAL IV PRN (17:44)
[2020-06-15] MEDS ORDERED: HYDROmorphone INJ 1 MG/ML SYRINGE IV PRN (17:44)
[2020-06-15] MEDS ORDERED: ONDANSETRON INJ 2 MG/ML 2 ML VIAL IV PRN ×2 (17:44→17:45)
[2020-06-15] MEDS ORDERED: PHENYLEPHRINE 100MCG/ML 5ML SYR IV PRN (17:44)
[2020-06-15] MEDS ORDERED: MoRPHine SULFATE 4 MG/ML 1 ML CARP\\VIAL IV PRN (17:45)
[2020-06-15] MEDS ORDERED: PROMETHAZINE HCL 25 MG in SODIUM CHLORIDE 0.9% 50 ML IV PRN (17:45)
[2020-06-15] MEDS ORDERED: MoRPHine SULFATE 2 MG/ML CARP IV PRN (17:45)
[2020-06-15] MEDS ORDERED: oxyCODONE/ACETAMINOPHEN 5mg/325mg TAB PO PRN ×2 (17:45)
[2020-06-15] MEDS ORDERED: BUPIVACAINE/EPINEPHRINE 0.5% MPF 1:200,000 30 ML VIAL ONE (17:46)
[2020-06-15] MEDS ORDERED: GLYCOPYRROLATE 0.2 MG/ML VIAL ONE (18:51)
[2020-06-15] MEDS ORDERED: NEOSTIGMINE METHYLSULFATE 5 MG/5 ML SYR ONE (18:51)
--- NOTE | 2020-06-15 19:15 | Post Operative Brief Note ---
Immediate Post Op Note v1 Date of Surgery June 15, 2020 Pre & Post Diagnosis Operation Date: 06/15/20 06:00 Pre-Op Diagnosis: acute appendicitis Post-Op Diagnosis: acute appendicitis I identified the patient and participated in the time-out.: Yes Procedure Operation Date: 06/15/20 06:00 Actual Procedures p Laparoscopic Appendectomy(Not Applicable) - Kaleb Rodriguez MD Surgeon Kaleb Rodriguez MD Leaf Blender none Estimated Blood Loss 5 Findings Consistent with Post-Op Diagnosis
--- NOTE | 2020-06-15 19:47 | Anesthesiology Progress Note ---
Date of Service June 15, 2020 Anesthesia Post Procedure Vital Signs Vital Signs: Temp Pulse Pulse Resp BP BP Pulse Ox 06/15/20 19:40 76 20 128/77 100 06/15/20 19:30 78 15 129/69 100 06/15/20 19:23 36.5 C 88 16 157/69 H 100 06/15/20 15:56 82 15 173/98 H 06/15/20 15:30 83 19 06/15/20 15:00 78 19 06/15/20 14:30 84 17 97 06/15/20 14:00 85 19 06/15/20 13:54 87 16 97 06/15/20 13:42 36.8 C 88 15 150/96 H 97 06/15/20 13:34 85 14 150/96 H 96 Transfer of Care Handoff Completed per policy Notes Mental Status: alert / awake / arousable Patient Amnestic to Procedure: Yes Nausea / Vomiting: adequately controlled Pain: adequately controlled Airway Patency, RR, SpO2: stable & adequate BP & HR: stable & adequate Hydration State: stable & adequate Anesthetic Complications: no major complications apparent
--- NOTE | 2020-06-15 19:50 | Operative Report (OR) ---
DATE OF OPERATION: 06/15/2020 PREOPERATIVE DIAGNOSIS: Acute appendicitis. POSTOPERATIVE DIAGNOSIS: Acute appendicitis. PROCEDURE PERFORMED: Laparoscopic appendectomy. SURGEON: Kaleb Rodriguez MD. ACCESS SERVICE REPRESENTATIVE: None. ANESTHESIA: General endotracheal with 0.5% Marcaine with epinephrine local. ESTIMATED BLOOD LOSS: 5 mL. DRAINS: None. COMPLICATIONS: None. SPECIMENS: Appendix sent for pathologic evaluation. INDICATION FOR PROCEDURE: This is a 70-year-old female who was admitted through the ED with acute abdominal pain. She had a thorough workup, which showed an acute appendicitis by CT scan. We will plan on doing a laparoscopic appendectomy. We talked to her in detail about the risks of the procedure. DESCRIPTION OF PROCEDURE: The patient was taken to the OR and underwent excellent general endotracheal anesthesia. Abdomen was prepped and draped in normal sterile fashion. A transverse supraumbilical incision was made. Two towel clips were placed on either side of the incision. A Veress needle was inserted with tension on the abdominal wall. Good pneumoperitoneum was achieved to 15 mmHg pressure. A visualized 11 port was then placed. A 5 suprapubic, a 5 right upper quadrant and a 12 left lower quadrant ports were placed in normal fashion. The patient was placed in head down and rolled to the left. Cecum was grasped with a blunt grasper from the right upper quadrant port, appendix was identified, it was acutely inflamed. There was no sign of perforation, no purulence. The tip of the appendix was grasped and tension was placed on the cecum showing the mesoappendix. This was taken down with a Harmonic scalpel. There was minimal bleeding. This was taken down to the base of the appendix. Once this was seen, a ANU everett 60 load was then used to transect the appendix at its base. This was done without incident. The appendix was then brought out through the left lower quadrant incision with an Endobag. The appendix was sent for pathologic evaluation. Pneumoperitoneum was reestablished. Staple line appeared intact with no bleeding. 500 mL of saline were used to irrigate out the belly and suctioned to clear. There were no abnormalities noted in the pelvis. Ports were then removed. Pneumoperitoneum was decompressed. 0 Vicryl was used to close the fascial defects in the 11 and 12 ports. Vicryl was used to close the skin in an interrupted subcuticular sutures. Steri-Strips and benzoin were used to reinforce the incisions. Sterile dressings were applied. The patient tolerated the procedure without any complications, sent to postop recovery area for a period of observation and then be sent to the floor for the rest of her care. I attest to the content of the Intraoperative Record and any orders documented therein. Any exception s are noted below.
[2020-06-15] MEDS: LACTATED RINGER'S 1,000 ML IV SCH (20:10)
[2020-06-15] MEDS: cefOXitin 2,000 MG in DEXTROSE 5% 50 ML IV SCH (23:47)
[2020-06-15] MEDS: ACETAMINOPHEN 325 MG TAB PO PRN (23:58)
[2020-06-16] MEDS: LACTATED RINGER'S 1,000 ML IV SCH (05:34)
[2020-06-16] MEDS ORDERED: PANTOprazole 40 MG TAB PO SCH (06:30)
[2020-06-16] MEDS ORDERED: COUGH DROP (SUGAR FREE) LOZ 24 LOZ/1 BOX BUCCAL STA (08:31)
[2020-06-16] MEDS: ACETAMINOPHEN 325 MG TAB PO PRN (08:37)
[2020-06-16] MEDS: cefOXitin 2,000 MG in DEXTROSE 5% 50 ML IV SCH (08:40)
[2020-06-16] MEDS ORDERED: EZETIMIBE 10 MG TABLET PO SCH (09:00)
[2020-06-16] MEDS ORDERED: amLODIPine BESYLATE 5 MG TAB PO SCH (09:00)
--- NOTE | 2020-06-16 09:56 | Surgery Progress Note ---
Date of Service June 16, 2020 Assessment & Plan (1) Acute appendicitis: s/p lap appy discharge Present on Admission?: Yes Admission and Anticipated Discharge Date Admission Date: June 15, 2020 Subjective doing well no complaints Review of Systems Constitutional: no fever and no chills Respiratory: no cough and no dyspnea Cardiovascular: no chest pain Gastrointestinal: + abdominal pain (mild); no nausea and no vomiting Genitourinary: no dysuria Physical Exam Constitutional: well developed and well nourished Neck: trachea midline Gastrointestinal (Abdomen): Inspection/Auscultation: abdomen normal to inspection, + abdomen distended and normal bowel sounds Percussion/Palpation: + abdomen tender; no guarding Results & Data ([facility]) Vital Signs (Past 12 Hours) Vital Signs Temp Pulse Resp BP Pulse Ox 06/16/20 03:07 36.8 C 86 16 114/73 97 06/15/20 23:10 37.3 C 87 16 135/84 97 06/15/20 22:13 37.1 C 88 16 136/79 99 (1) Acute appendicitis Acute appendicitis type: unspecified acute appendicitis type Qualified Code(s): K35.80 - Unspecified acute appendicitis
--- NOTE | 2020-06-16 10:56 | Electrocardiogram Report ---
Test Reason : Blood Pressure : / mmHG Vent. Rate : 084 BPM Atrial Rate : 084 BPM P-R Int : 152 ms QRS Dur : 086 ms QT Int : 376 ms P-R-T Axes : 048 -16 017 degrees QTc Int : 444 ms Normal sinus rhythm Possible Left atrial enlargement Nonspecific ST and T wave abnormality Abnormal ECG When compared with ECG of 23-DEC-2019 12:28, Nonspecific T wave abnormality now evident in Anterior leads Confirmed by Carlyle Garcia ([id number]) on 06/16/2020 10:56:46 AM Referred By: REFERRED SELF Confirmed By:Carlyle Garcia
--- NOTE | 2020-06-16 11:01 | Discharge Summary (DS) ---
DIAGNOSES: 1. Acute appendicitis, status post laparoscopic appendectomy. 2. Hypertension. 3. Elevated cholesterol. 4. Ulcerative colitis. 5. Gastroesophageal reflux disease. ATTENDING PHYSICIAN: Kaleb Rodriguez MD PROCEDURE: Laparoscopic appendectomy on 06/15/2020. HISTORY OF PRESENT ILLNESS: This is a 70-year-old female who was admitted through the ED with acute appendicitis. She was prepped and taken to the OR for a laparoscopic appendectomy. HOSPITAL COURSE: The patient was admitted through the ED, taken straight to the OR, and underwent uncomplicated laparoscopic appendectomy for an obvious acute appendicitis. She postoperatively was moved to the floor for observation. She did well with her diet and activity. She required no narcotic pain medication. She was tolerating a regular diet and will be discharged to home on postoperative day #1. DISCHARGE MEDICATIONS: Amlodipine 5 mg p.o. daily, Finacea one application topically daily, calcium lactate 600 mg p.o. daily, chaste tree one dose p.o. daily, vitamin D 2000 units p.o. daily, Benadryl 25 mg p.o. at bedtime p.r.n., Zetia 10 mg p.o. daily, folic acid 1 mg p.o. daily, Lialda 3.6 grams p.o. daily, omeprazole 20 mg p.o. daily, tramadol 50 mg p.o. q.8h. p.r.n., Valtrex 500 mg p.o. daily. DIET: Regular as tolerated. ACTIVITY: No strenuous activity, 2 weeks, nothing more than 20 pounds. FOLLOWUP: Two weeks in Dr. Rodriguez's office. [facility]
== END 2020-06-16 12:39 | disposition home or self-care (01) ==
LOC: ED 13:29 → 3N 17:54 → OR 17:54
DX: K35.30 Acute appendicitis with localized peritonitis, without perforation or gangrene; Z20.822 Contact with and (suspected) exposure to COVID-19; I10 Essential (primary) hypertension; Z79.899 Other long term (current) drug therapy; E87.6 Hypokalemia; Z88.8 Allergy status to other drugs, medicaments and biological substances; K51.90 Ulcerative colitis, unspecified, without complications; E78.00 Pure hypercholesterolemia, unspecified; Z88.2 Allergy status to sulfonamides; K21.9 Gastro-esophageal reflux disease without esophagitis